=== PATIENT | female | born 1940 | race Hispanic/Latino ===

== ENCOUNTER 2024-02-03 04:43 | Emergency (ER) | payer MEDICARE ==
[~2024-02-03] VITALS: Ht 147.3 cm; Wt 49.9 kg
[~2024-02-03 04:43] MED LIST: ALEN35TA53 PO; ASPI-1197 PO; CALC-716 PO; CHOL200013 PO; DOCUSATE SODIUM PO; FERR-63 PO; FOLI0.8T3 PO; LEVO50TA11 PO; MULT-1203 PO; NAPR-1023 PO; POLY119P2 PO; TIMXE255OS OD; TYLENOL PO; VALS80TA30 PO
[2024-02-03 06:50] LABS: BASOPHILS # (AUTO) 0.04 K/uL (0.00-0.20); BASOPHILS % (AUTO) 0.5 % (0.0-5.0); EOSINOPHILS # (AUTO) 0.19 K/uL (0.00-0.70); EOSINOPHILS % (AUTO) 2.5 % (0.0-8.0); HEMATOCRIT 32.6 % (36-48); IMMATURE GRANULOCYTE ABSOLUTE 0.03 K/uL (0-1); LYMPHOCYTES # (AUTO) 1.2 K/uL (1.0-4.8); LYMPHOCYTES % (AUTO) 14.9 % (21.0-51.0); MEAN CORPUSCULAR HEMOGLOBIN 31.7 pg (27.0-33.0); MEAN CORPUSCULAR HGB CONC 33.4 g/dL (32.0-36.0); MEAN CORPUSCULAR VOLUME 94.8 fL (79-99); MONOCYTES # (AUTO) 0.9 K/uL (0.1-1.0); MONOCYTES % (AUTO) 11.9 % (3.0-13.0); NEUTROPHILS # (AUTO) 5.4 K/uL (1.8-7.7); NEUTROPHILS % (AUTO) 69.8 % (40.0-77.0); PLATELET COUNT (AUTO) 193 K/uL (130-400); RED BLOOD CELL COUNT(AUTO) 3.44 MIL/uL (4.00-5.50); RED CELL DISTRIBUTION WIDTH 14.8 % (11.0-15.5); WHITE BLOOD COUNT (AUTO) 7.7 K/uL (4.8-10.8)
[2024-02-03 07:01] LABS: BILIRUBIN,TOTAL 0.3 mg/dL (0.2-1.0); CREATININE 0.4 mg/dL (0.5-1.0); POTASSIUM 4.1 mmol/L (3.5-5.1); TOTAL PROTEIN, SERUM 5.9 g/dL (6.0-8.3)
[2024-02-03 08:24] VITALS: BP 114/56; PULSE 67; RESP 18; O2SAT 99
== END 2024-02-03 10:04 | disposition home or self-care (01) ==
LOC: EDH 04:43
DX: K94.23 Gastrostomy malfunction (principal); E03.9 Hypothyroidism, unspecified; I10 Essential (primary) hypertension; I25.10 Atherosclerotic heart disease of native coronary artery without angina pectoris; Z79.899 Other long term (current) drug therapy
CPT/HCPCS: 36415; 80053; 85025

== ENCOUNTER 2025-01-20 00:45 | Inpatient (IN) | payer MEDICARE ==
[~2025-01-20] VITALS: Ht 162.6 cm; Wt 45.8 kg
[2025-01-20] VITALS (17 sets, daily range): BP systolic 120–140; BP diastolic 60–81; PULSE 63–95; RESP 18–19; TEMP 98–99; O2SAT 96–99
[~2025-01-20 00:45] MED LIST changes: +CALC-716 PEG; -CALC-716 PO; +FERR-63 PEG; -FERR-63 PO; +FOLI0.8T3 PEG; -FOLI0.8T3 PO; +LEVO50TA11 PEG; -LEVO50TA11 PO; +MULT-1203 PEG; -MULT-1203 PO; -NAPR-1023 PO; +NAPR-1194 PO; -TIMXE255OS OD; +TIMXE255OS OS
--- NOTE | 2025-01-20 01:11 | NUR ---
PER [facility], PATIENT HAS DECUBITUS ULCER TO L FOOT, L BUTTOCK AND R ELBOW
--- NOTE | 2025-01-20 01:31 | ERN ---
General Chief Complaint: Shortness of Breath Stated Complaint: LOW OXYGEN SATURATIONS, TACHYPNEA Time Seen by MD: 00:48 History of Present Illness Initial Comments Mrs Cruz is a very pleasant 84-year-old female with a significant past medical history of intellectual disability, hypothyroidism, peptic ulcer disease, vitamin-D deficiency who presents today with low oxygen levels from her [employer]. Patient apparently was brought in after having sats in the 70s and 80s. Patient is intellectually impaired in his unable to give any history. Patient appears to be foaming and having issues with secretions. Allergies: Coded Allergies: No Known Drug Allergies (Unverified Allergy, Unknown, 01/25/24) diphenhydramine (Verified Allergy, Unknown, 01/25/24) Home Meds Reported Medications Cholecalciferol (Vitamin D3) (Vitamin D3) 50 Mcg (2000 Unit) Capsule, 50 MCG PO AM, CAP 01/25/24 Valsartan (Valsartan) 80 Mg Tablet, 80 MG PO BID, TAB 01/25/24 Timolol Maleate (Timoptic Xe 0.25% Ophth Gel) 0.25 % Opems, 20 DROP OD AM, APPL 01/25/24 Polyethylene Glycol 3350 (Miralax) 17 Gram/Dose Powder, 119 GM PO AM, APPL 24 Naproxen (Naproxen) 500 Mg Tablet, 500 MG PO M68DEOR, TAB 01/25/24 Multivitamin (Multi Vitamin Daily) 1 Each Tablet, 1 EACH PO AM, TAB 24 Levothyroxine Sodium (Levothyroxine Sodium) 50 Mcg Tablet, 50 MCG PO AM, TAB 24 Folic Acid (Folic Acid) 0.8 Mg Tablet, 0.8 MG PO AM, TAB 24 Ferrous Sulfate (Feosol) 325 Mg (65 Mg Iron) Tablet, 325 MG PO AM, TAB 24 [Docusate Sodium ] No Conflict Check, 100 TSP PO AM 01/25/24 Calcium Citrate/Vitamin D3 (Calcium Citrate - Vit D Caplet) 315MG-6.25 Tablet, 1 EACH PO AM, TAB 24 Aspirin (Aspirin) 81 Mg Tab.chew, 81 MG PO AM, TAB.CHEW 24 Alendronate Sodium (Alendronate Sodium) 35 Mg Tablet, 35 MG PO QWEEK, TAB 01/25/24 [Tylenol] No Conflict Check, 650 MG PO EVERY 8 HOURS 01/25/24 Past Medical History Past Medical History: Anemia, Arthritis, CAD, Heart Disease, Hypertension, Unknown Medical History Other: DYSPHAGIA,DJD,CARDIOMYOPATHY, CLOSED HEAD INJURY,PULMONARY FIBROSIS Past Surgical History: None, Unknown Surgical History Other: PMH LUNG FIBROSIS, PEG TUBE ROS Dictation ROS and inability to done given patient's intellectual ability Physical Exam Physical Exam Dictation General: Intellectually delayed patient who is screaming Head/Face: Normocephalic, atraumatic Eyes: PERRL, EOMI, vision at baseline ENT: Patient appears to be foaming at side of her mouth n Neck: Trachea midline, supple Cardiovascular: RRR, normal S1/S2, No MRGs, no JVD Respiratory: Coarse breath sounds bilaterally Abdomen: Soft, non-tender, non-distended, normal bowel sounds Skin: Thin skin Neuro: Intellectually delayed unable to conduct exam moving extremities spontaneously, kyphotic Results Laboratory and Microbiology Lab and Micro Result Laboratory Tests Test 01/20/25 01:24 White Blood Count 10.9 K/uL (4.8-10.8) H Red Blood Count 2.75 MIL/uL (4.00-5.50) L Hemoglobin 8.8 g/dL (12.0-16.0) L Hematocrit 28.2 % (36-48) L Mean Corpuscular Volume 102.5 fL (79-99) H Mean Corpuscular Hemoglobin 32.0 pg (27.0-33.0) Mean Corpuscular Hemoglobin Concent 31.2 g/dL (32.0-36.0) L Red Cell Distribution Width 15.5 % (11.0-15.5) Platelet Count 169 K/uL (130-400) Mean Platelet Volume 11.9 fL (7.5-10.5) H Immature Granulocyte % (Auto) 0.5 % (0-1) Neutrophils (%) (Auto) 71.6 % (40.0-77.0) Lymphocytes (%) (Auto) 13.8 % (21.0-51.0) L Monocytes (%) (Auto) 11.1 % (3.0-13.0) Eosinophils (%) (Auto) 2.5 % (0.0-8.0) Basophils (%) (Auto) 0.5 % (0.0-5.0) Neutrophils # (Auto) 7.8 K/uL (1.8-7.7) H Lymphocytes # (Auto) 1.5 K/uL (1.0-4.8) Monocytes # (Auto) 1.2 K/uL (0.1-1.0) H Eosinophils # (Auto) 0.27 K/uL (0.00-0.70) Basophils # (Auto) 0.05 K/uL (0.00-0.20) Absolute Immature Granulocyte (auto 0.05 K/uL (0-1) Nucleated Red Blood Cells 0.0 % (0.0-0.19) Sodium Level 153 mmol/L (136-145) H Potassium Level 3.6 mmol/L (3.5-5.1) Chloride Level 118 mmol/L (101-111) H Carbon Dioxide Level 28 mmol/L (21-32) Blood Urea Nitrogen 23 mg/dL (7-18) H Creatinine 0.3 mg/dL (0.5-1.0) L Glomerular Filtration Rate Calc 104 mL/min (>90) Random Glucose 101 mg/dL (70-105) Total Calcium 8.9 mg/dL (8.5-10.1) Total Bilirubin 0.4 mg/dL (0.2-1.0) Aspartate Amino Transf (AST/SGOT) 46 U/L (10-37) H Alanine Aminotransferase (ALT/SGPT) 31 U/L (12-78) Alkaline Phosphatase 50 U/L (50-136) Total Protein 6.8 g/dL (6.0-8.3) Albumin 2.8 g/dL (3.5-5.0) L MDM Patient at this time has a chest x-ray that is concerning for ongoing aspiration pneumonia as well as sodium in his elevated concerning for hypernatremia. Patient will need to be admitted for further evaluation and care. Spoke to hospitalist who at this time has agreement. MDM: Differential diagnosis: Aspiration pneumonia, acute hypoxic respiratory failure Rationale: Tests considered and ordered secondary to shared decision making include: labs, ECG and radiology Previous outside records reviewed: Old ER visits. Risk of complication and/or morbidity or mortality of patient management: None Medications-Per medication reconciliation Need for hospitalization: Patient does meet criteria for hospitalization. Need for emergency major/minor surgery: No There are no social concerns with this patient. Prescription drug management Prescriptions will include symptomatic care Patient's prior external medical records from other ER visits were reviewed by me as indicated. Prior testing and results from previous visits were reviewed. Prior tests were taken into account with medical decision making and resource utilization, independent historian/historians were used to obtain complete medical history. I independently interpreted the test that were performed, results were reviewed by me and considered findings on radiology if ordered. Medical management and examination interpretation discussions were had by me with other qualified healthcare professionals as indicated for the patient's care. ED Course Orders Procedure Category Date Status Time Cbc With Differential LAB 01/20/25 Complete 00:56 Comprehensive LAB 01/20/25 Complete Metabolic Panel 00:56 Chest 1vw RAD 01/20/25 Resulted 00:56 Cefepime Hcl 1 Gm PHA 01/20/25 Complete Vial (Maxipime 1 Gm Vi 02:00 Vancomycin 750mg PHA 01/20/25 Complete (Vancomycin 750mg) 02:00 0.9% Nacl 250ml (Ns PHA 01/20/25 Complete 250ml) 02:00 Urinalysis Profile LAB 01/20/25 Logged 01:45 Current Medications Medications (Trade) Dose Ordered Sig/Paulo Route PRN Reason Start Time Stop Time Status Last Admin Dose Admin Cefepime HCl (MAXipime 1 GM vial) 1 gm ONCE ONCE IVPB 01/20/25 02:00 01/20/25 02:01 DC 01/20/25 02:06 Sodium Chloride (NS 250ml) 250 ml ONCE ONCE IVPB 01/20/25 02:00 01/20/25 02:01 DC 01/20/25 02:07 Vancomycin HCl (Vancomycin 750mg) 750 mg ONCE ONCE IVPB 01/20/25 02:00 01/20/25 02:01 DC 01/20/25 02:06 Vital Signs Date Time Temp Pulse Resp B/P (MAP) Pulse Ox O2 Delivery O2 Flow Rate FiO2 01/20/25 02:30 99.1 76 20 133/55 97 Nasal Cannula* 2 28 01/20/25 01:12 80 20 135/61 93 Room Air* 0 21 01/20/25 00:57 99.1 87 24 153/69 93 Room Air 0 DX & DISP Disposition: Inpatient Departure Impression: Primary Impression: Acute hypoxic respiratory failure Condition: Stable Referrals: ARYA MICHAUD (PCP) MICKY CAVANAUGH MD Jan 20, 2025 01:31
[2025-01-20 01:37] LABS: IMMATURE GRANULOCYTE ABSOLUTE 0.05 K/uL (0-1); NUCLEATED RED BLOOD CELLS 0.0 % (0.0-0.19); PLATELET COUNT (AUTO) 169 K/uL (130-400); RED BLOOD CELL COUNT(AUTO) 2.75 MIL/uL (4.00-5.50); RED CELL DISTRIBUTION WIDTH 15.5 % (11.0-15.5); WHITE BLOOD COUNT (AUTO) 10.9 K/uL (4.8-10.8)
[2025-01-20 01:49] LABS: CREATININE 0.3 mg/dL (0.5-1.0); GLOMERULAR FILTR. RATE CALC 104.0 mL/min (>90); GLUCOSE,RANDOM 101.0 mg/dL (70-105); SODIUM SERUM 153.0 mmol/L (136-145); UREA NITROGEN, BLOOD 23.0 mg/dL (7-18)
[2025-01-20 01:54] LABS: ASPARTATE AMINOTRANSFERASE 46.0 U/L (10-37); TOTAL PROTEIN, SERUM 6.8 g/dL (6.0-8.3)
--- NOTE | 2025-01-20 02:00 | NUR ---
ATTEMPTED TO STRAIGHT CATHERTIZE PATIENT AT THIS TIME, UNABLE TO DO SO DUE TO PATIENT BEING CONTRACTED TO BILATERAL LEGS. PURDOROTHY PLACED. ED AWARE./DENIA
[2025-01-20] MEDS: VANCOMYCIN 750MG VIAL IVPB ONE (02:06)
[2025-01-20] MEDS: 0.9% NACL 250ML IVPB ONE (02:07)
--- NOTE | 2025-01-20 02:38 | HMCIMG ---
EXAM: CR Chest, 2 views. CLINICAL HISTORY: Shortness of breath. COMPARISON: None provided. FINDINGS: Suboptimal evaluation due to scoliosis and the patient's positioning, the craniofacial bones overlie the right upper thorax. Questionable small pleural effusions and basilar atelectasis bilaterally, more pronounced on the right. Mild COPD. Questionable mild cardiomegaly. Mildly elevated left hemidiaphragm. No pneumothorax. Osteopenia. Degenerative osseous changes. Chronic fracture of the right proximal humerus. IMPRESSION: Suboptimal evaluation due to scoliosis and the patient's positioning, the craniofacial bones overlie the right upper thorax. Questionable small pleural effusions and basilar atelectasis bilaterally, more pronounced on the right. Mild COPD. Questionable mild cardiomegaly. Mildly elevated left hemidiaphragm. /[place]
[2025-01-20] MEDS ORDERED: DEXTROSE 5 %-0.225 % NACL 500 ML IV SCH ×2 (05:00→10:00)
--- NOTE | 2025-01-20 05:03 | HP ---
[facility] HISTORY AND PHYSICAL Date of Service: Jan 20, 2025 Time of Service: 04:39 PCP: Rodney Doe HISTORY OF PRESENT ILLNESS: This is an 84-year-old female, a resident of [facility] with past medical history of Hypothyroidism, pulmonary TB, intellectual disability, hypertension, Coronary artery disease with history of cardiomyopathy chronic dysphagia with PEG tube placement who was brought by EMS to the ED for complaints of low saturation and tachypnea.Apparently patient has been having foaming secretions in the mouth and saturations were on 70 to 80's.Patient is non historian and no family was present during my evaluation.Details and information were mostly gathered from ER MD and primary nurse.As per Er report patient was recently discharged at [facility] and was treated with pneumonia. Latest vital signs temperature 99.9, heart rate 78, blood pressure 120/40 saturation 97% on 2 L nasal cannula. Labs: WBC 10, hemoglobin 8, hematocrit 28, platelet count 169. Sodium 153, potassium 3.6 chloride 118 BUN 23, creatinine 0.3, GFR 104, AST 46, albumin 2.8. Chest x-ray result revealed suboptimal evaluation due to scoliosis and the patient's positioning, the craniofacial bone of the right overlie the right upper thorax . Questionable small pleural effusions and basilar atelectasis bilaterally, more pronounced on the right. Mild Chronic obstructive pulmonary disease. Questionable mild cardiomegaly. Mild elevated left hemidiaphragm. While in the ER patient received vancomycin and cefepime IV. We will admit patient for further medical management. REVIEW OF SYSTEMS unable to perform patient has impaired cognitive PAST MEDICAL HISTORY: [ Hypothyroidism, pulmonary TB, intellectual disability, hypertension, Coronary artery disease with history of cardiomyopathy ] PAST SURGICAL HISTORY: [PEG tube placement on 01/2024 ] PAST SOCIAL HISTORY: [ Patient resides in [facility]. No records of tobacco, alcohol and illicit drug use r] FAMILY HISTORY: [ No pertinent medical history ] Coded Allergies: No Known Drug Allergies (Unverified Allergy, Unknown, 01/25/24) diphenhydramine (Verified Allergy, Unknown, 01/25/24) PHYSICAL EXAM GENERAL APPEARANCE: The patient is somnolent, in no acute cardiopulmonary distress. NEUROLOGICAL: Patient is nonverbal HEENT: Face is symmetric. Pupils are equal and reactive. Extraocular movements are intact. NECK: Supple. No JVD. CHEST: Normal chest expansion. Telemetry. LUNGS: Absence of any rales, rhonchi or any wheezing. CARDIOVASCULAR: Regular. S1 and S2 normal. No appreciable rubs, murmurs or gallops. ABDOMEN: Positive PEG tube clamped Soft, nontender, and nondistended. There is no rebound, voluntary guarding, or rigidity. : Deferred. No Hunt. EXTREMITIES: Non-edematous and not cyanotic. No clubbing. Good capillary refill. SKIN: No skin breakdown. Vital Sign (Last 24 Hours) 01/20/25 04:09 Temp 99.9 Pulse 78 Resp 17 B/P (MAP) 120/40 Pulse Ox 97 O2 Delivery Nasal Cannula* O2 Flow Rate 2 FiO2 28 LABS: Laboratory: Test 01/20/25 01:24 Range/Units White Blood Count 10.9 H 4.8-10.8 K/uL Red Blood Count 2.75 L 4.00-5.50 MIL/uL Hemoglobin 8.8 L 12.0-16.0 g/dL Hematocrit 28.2 L 36-48 % Mean Corpuscular Volume 102.5 H 79-99 fL Mean Corpuscular Hemoglobin 32.0 27.0-33.0 pg Mean Corpuscular Hemoglobin Concent 31.2 L 32.0-36.0 g/dL Red Cell Distribution Width 15.5 11.0-15.5 % Platelet Count 169 130-400 K/uL Mean Platelet Volume 11.9 H 7.5-10.5 fL Immature Granulocyte % (Auto) 0.5 0-1 % Neutrophils (%) (Auto) 71.6 40.0-77.0 % Lymphocytes (%) (Auto) 13.8 L 21.0-51.0 % Monocytes (%) (Auto) 11.1 3.0-13.0 % Eosinophils (%) (Auto) 2.5 0.0-8.0 % Basophils (%) (Auto) 0.5 0.0-5.0 % Neutrophils # (Auto) 7.8 H 1.8-7.7 K/uL Lymphocytes # (Auto) 1.5 1.0-4.8 K/uL Monocytes # (Auto) 1.2 H 0.1-1.0 K/uL Eosinophils # (Auto) 0.27 0.00-0.70 K/uL Basophils # (Auto) 0.05 0.00-0.20 K/uL Absolute Immature Granulocyte (auto 0.05 0-1 K/uL Nucleated Red Blood Cells 0.0 0.0-0.19 % Sodium Level 153 H 136-145 mmol/L Potassium Level 3.6 3.5-5.1 mmol/L Chloride Level 118 H 101-111 mmol/L Carbon Dioxide Level 28 21-32 mmol/L Blood Urea Nitrogen 23 H 7-18 mg/dL Creatinine 0.3 L 0.5-1.0 mg/dL Glomerular Filtration Rate Calc 104 >90 mL/min Random Glucose 101 70-105 mg/dL Total Calcium 8.9 8.5-10.1 mg/dL Total Bilirubin 0.4 0.2-1.0 mg/dL Aspartate Amino Transf (AST/SGOT) 46 H 10-37 U/L Alanine Aminotransferase (ALT/SGPT) 31 12-78 U/L Alkaline Phosphatase 50 50-136 U/L Total Protein 6.8 6.0-8.3 g/dL Albumin 2.8 L 3.5-5.0 g/dL DIAGNOSTICS / RADIOLOGY: [ ] ASSESSMENT: Acute hypoxemic respiratory failure POA Suspected aspiration pneumonia POA Acute anemia POA Hypernatremia POA Hyperchloremia POA Protein calorie malnutrition POA Debility POA Intellectual disability POA Chronic dysphagia on pegtube placement status POA PLAN: We will admit patient in medical telemetry We will keep patient nothing by mouth We will start D51/4NS @ 75 ml / hr x 1bag and re evaluate We will continue on vancomycin and cefepime IV for broad-spectrum coverage We will start on Famotidine 20 mg IV bid for GI prophylaxis We will replace electrolytes as needed per protocol We will seek pulmonology consultation We will request case management service We will request dietary consultation to recommend tube feeding We will seek physical therapy service Follow-up urinalysis and sputum culture May continue oxygen supplementation to keep saturation above 92% We will start on DuoNeb treatment as needed for shortness of breaths We will add prn medication for fever,pain,cough and nausea We will reconcile home meds once medlist available We will request labs in am Further orders to follow depending on above results Case discussed with attending physician and came up with above treatment and plan of care.and acuter anemia ADVANCED CARE PLANNING 1. Which of the following were discussed? Unable to perform patient is cognitively impaire Hospice Care - Yes / No Therapeutic options - Yes / No Advance Directives - Yes / No Other discussions - 2. Discussed with who? 3. Voluntary nature of this service was explained to the patient? Yes 4. Amount of time spent - ____20___ 5. Reviewed by Physician? (if this service was performed by NPP) Yes Patient seen and examined by me. Agree with note by ESCROW REPRESENTATIVE SEE ADDITIONAL ORDERS PER CHART DISCUSSED WITH NURSING STAFF [facility] Jan 20, 2025 05:03
[2025-01-20] MEDS ORDERED: VANCOMYCIN 1G/250ML KIT 250 ML IV ONE (05:30)
[2025-01-20] MEDS ORDERED: VANCOMYCIN PROTOCOL PER PHARMACY IV SCH (05:30)
--- NOTE | 2025-01-20 07:04 | NUR ---
REPORT GIVEN TO HUGO HWANGTRACK [employer] REPAIR SUPERVISOR AT THIS TIME./DENIA
[2025-01-20] MEDS: SODIUM CHLORIDE 3% FOR INHALATION 4 ML/AMP VIAL.NEB IH ONE ×3 (07:06→22:49)
--- NOTE | 2025-01-20 07:37 | NUR ---
PULMONOLOGY CONSULT CALLED AT THIS TIME
[2025-01-20 07:51] LABS: IMMATURE GRANULOCYTE ABSOLUTE 0.04 K/uL (0-1); NUCLEATED RED BLOOD CELLS 0.0 % (0.0-0.19); PLATELET COUNT (AUTO) 132 K/uL (130-400); RED BLOOD CELL COUNT(AUTO) 2.84 MIL/uL (4.00-5.50); RED CELL DISTRIBUTION WIDTH 15.6 % (11.0-15.5); WHITE BLOOD COUNT (AUTO) 9.0 K/uL (4.8-10.8)
--- NOTE | 2025-01-20 08:01 | NUR ---
REPORT GIVEN TO CONSUELO HWANG
[2025-01-20 08:05] LABS: ASPARTATE AMINOTRANSFERASE 37.0 U/L (10-37); CREATININE 0.3 mg/dL (0.5-1.0); GLOMERULAR FILTR. RATE CALC 104.0 mL/min (>90); GLUCOSE,RANDOM 99.0 mg/dL (70-105); SODIUM SERUM 159.0 mmol/L (136-145); TOTAL PROTEIN, SERUM 6.6 g/dL (6.0-8.3); UREA NITROGEN, BLOOD 21.0 mg/dL (7-18)
--- NOTE | 2025-01-20 08:12 | NUR ---
PHARMACY NEEDS TO MAKE IV FLUIDS WILL SEND TO ROOM 202
[2025-01-20] MEDS ORDERED: MAGNESIUM 2GM PREMIX 50ML 50 ML IV PRN (09:30)
[2025-01-20] MEDS ORDERED: PoTASSium chloRIDE 20MEQ ER 20 MEQ ERTAB PO PRN (09:30)
[2025-01-20] MEDS: PoTASSium chl 10% ELIXIR 20MEQ 20 MEQ/15 ML UDCUP PO PRN (09:47)
[2025-01-20] MEDS: FAMOTIDINE 20MG VIAL IV SCH (09:47)
[2025-01-20] MEDS ORDERED: DEXTROSE 5 %-0.225 % NACL 500 ML IV ONE (10:00)
[2025-01-20] MEDS: D5W-1/2 NS/20MEQ KCL 1,000 ML IV SCH (10:11)
--- NOTE | 2025-01-20 10:49 | CONS ---
[facility] CONSULTATION NOTE Date Patient Seen: Jan 20, 2025 Time of Visit: 10:49 Supervising Physician: Dr. Jose A Torres Reason for Consultation: Respiratory failure, pneumonia PROBLEM LIST: Acute hypoxemic respiratory failure Bilateral pneumonia, HAP vs/and aspiration Elevated D-dimer, PE ruled out Hypernatremia Microcytic hypochromic anemia Protein calorie malnutrition Debility Intellectual disability Chronic dysphagia with PEG tube Octogenarian HPI: HPI acquired through chart review, patient unable to provide any history. "This is an 84-year-old female, a resident of [facility] with past medical history of Hypothyroidism, pulmonary TB, intellectual disability, hypertension, Coronary artery disease with history of cardiomyopathy chronic dysphagia with PEG tube placement who was brought by EMS to the ED for complaints of low saturation and tachypnea.Apparently patient has been having foaming secretions in the mouth and saturations were on 70 to 80's.Patient is non historian and no family was present during my evaluation.Details and information were mostly gathered from ER MD and primary nurse.As per Er report patient was recently discharged at [facility] and was treated with pneumonia. Latest vital signs temperature 99.9, heart rate 78, blood pressure 120/40 saturation 97% on 2 L nasal cannula. Labs: WBC 10, hemoglobin 8, hematocrit 28, platelet count 169. Sodium 153, potassium 3.6 chloride 118 BUN 23, creatinine 0.3, GFR 104, AST 46, albumin 2.8. Chest x-ray result revealed suboptimal evaluation due to scoliosis and the patient's positioning, the craniofacial bone of the right overlie the right upper thorax . Questionable small pleural effusions and basilar atelectasis bilaterally, more pronounced on the right. Mild Chronic obstructive pulmonary disease. Questionable mild cardiomegaly. Mild elevated left hemidiaphragm. While in the ER patient received vancomycin and cefepime IV". BIS was consulted due to AHRF and hypoxia. Upon assessment, patient is lethargic, but responds to verbal and tactile stimuli. Currently on 3LPM via NC. Unable to voice needs or follow commands. Meal Temperer at bedside. CTA chest ordered due to elevated d-dimer, negative for PE but shows atelectasis and minimal infiltrates. She will continue on IV ABX Plan: Continue on IV Cefepime, Vanco, and Flagyl Duonebs, CPT Venous doppler Increase water flushes to 250ml every 6 hours to help decrease hypernatremia AM labs Thank you for the consult, we will continue to follow. Call if any questions. PAST MEDICAL HX: see above PAST SURGICAL HX: noncontributory SOCIAL HISTORY: No tobacco, ETOH, or illicit drug use Coded Allergies: No Known Drug Allergies (Unverified Allergy, Unknown, 01/25/24) diphenhydramine (Verified Allergy, Unknown, 01/25/24) REVIEW OF SYSTEMS: Unable due to mental status PHYSICAL EXAM: GENERAL: Lethargic, on NC, NAD HEENT: EOMI, Sclera non icteric, moist mucosa NECK: Supple, no JVD, trachea midline LUNGS: Diminished breath sounds bilaterally. No wheezes HEART: Regular rate and rhythm. Normal S1 and S2, without murmurs ABD: Abdomen soft, nontender. Bowel sounds present EXT: No clubbing cyanosis or edema NEURO: Lethargic Vital Signs (last 8hr) Date Time Temp Pulse Resp B/P (MAP) Pulse Ox O2 Delivery O2 Flow Rate FiO2 01/20/25 07:40 99.0 75 18 131/72 98 Nasal Cannula* 3.0 N/A 01/20/25 07:09 68 18 01/20/25 07:07 18 N/Cannula Low lpm 3.0 32 01/20/25 06:10 73 19 111/51 95 Nasal Cannula* 2 28 01/20/25 05:13 18 N/Cannula Low lpm 2.0 28 01/20/25 05:10 80 18 118/97 95 Nasal Cannula* 2 28 01/20/25 04:09 99.9 78 17 120/40 97 Nasal Cannula* 2 28 LABS: Hematology Labs: Test 01/20/25 07:31 Range/Units White Blood Count 9.0 4.8-10.8 K/uL Red Blood Count 2.84 L 4.00-5.50 MIL/uL Hemoglobin 9.0 L 12.0-16.0 g/dL Hematocrit 29.4 L 36-48 % Mean Corpuscular Volume 103.5 H 79-99 fL Mean Corpuscular Hemoglobin 31.7 27.0-33.0 pg Mean Corpuscular Hemoglobin Concent 30.6 L 32.0-36.0 g/dL Red Cell Distribution Width 15.6 H 11.0-15.5 % Platelet Count 132 130-400 K/uL Mean Platelet Volume 12.9 H 7.5-10.5 fL Immature Granulocyte % (Auto) 0.4 0-1 % Neutrophils (%) (Auto) 67.7 40.0-77.0 % Lymphocytes (%) (Auto) 17.8 L 21.0-51.0 % Monocytes (%) (Auto) 11.3 3.0-13.0 % Eosinophils (%) (Auto) 2.4 0.0-8.0 % Basophils (%) (Auto) 0.4 0.0-5.0 % Neutrophils # (Auto) 6.1 1.8-7.7 K/uL Lymphocytes # (Auto) 1.6 1.0-4.8 K/uL Monocytes # (Auto) 1.0 0.1-1.0 K/uL Eosinophils # (Auto) 0.22 0.00-0.70 K/uL Basophils # (Auto) 0.04 0.00-0.20 K/uL Absolute Immature Granulocyte (auto 0.04 0-1 K/uL Nucleated Red Blood Cells 0.0 0.0-0.19 % Red Blood Cell Morphology See comments Chemistry Labs: Test 01/20/25 09:18 01/20/25 07:31 Range/Units Lactic Acid Level 1.2 0.8-2.5 mmol/L Sodium Level 159 H 136-145 mmol/L Potassium Level 2.8 *L 3.5-5.1 mmol/L Chloride Level 122 *H 101-111 mmol/L Carbon Dioxide Level 31 21-32 mmol/L Blood Urea Nitrogen 21 H 7-18 mg/dL Creatinine 0.3 L 0.5-1.0 mg/dL Glomerular Filtration Rate Calc 104 >90 mL/min Random Glucose 99 70-105 mg/dL Total Calcium 8.7 8.5-10.1 mg/dL Magnesium Level 2.30 1.80-2.40 mg/dL Total Bilirubin 0.4 0.2-1.0 mg/dL Aspartate Amino Transf (AST/SGOT) 37 10-37 U/L Alanine Aminotransferase (ALT/SGPT) 32 12-78 U/L Alkaline Phosphatase 47 L 50-136 U/L Total Protein 6.6 6.0-8.3 g/dL Albumin 2.9 L 3.5-5.0 g/dL Procalcitonin < 0.05 L 0.05-0.5 ng/mL Coagulation Labs: Test 01/20/25 07:31 Range/Units D-Dimer Quantitative (PE/DVT) 2476 *H 0-500 ng/mL DIAGNOSTICS / RADIOLOGY RESULTS: SERVICE [id number] REASON: elevated d-dimer ORDERING PHYSICIAN: QIAN ARAUJO NP PROCEDURE: CHES PE - CT CHEST PE PROTOCOL WWO CONT EXAM: CTA Chest with and without Intravenous Contrast for PE evaluation CLINICAL HISTORY: elevated d-dimer TECHNIQUE: Axial CTA images of the chest with and without intravenous contrast using a pulmonary embolism protocol. Multiplanar reconstructed images were created and reviewed. CONTRAST: None. was administered without incident. COMPARISON: None provided. FINDINGS: PULMONARY ARTERIES: No evidence of central or segmental pulmonary embolism is seen. AORTA: There is no evidence for aneurysm or dissection of the thoracic aorta. LUNGS: Bibasilar atelectasis. No pulmonary infiltrates. PLEURAL SPACES: Trace bilateral pleural effusions. HEART: Heart size is within normal limits. No significant pericardial effusion. LYMPH NODES: No lymphadenopathy is evident. BONES: Moderate degenerative changes in the thoracic spine with marked kyphotic deformity. UPPER ABDOMEN: Images of the upper abdomen are unremarkable. IMPRESSION: No pulmonary embolus. No thoracic aortic aneurysm or dissection. Trace bilateral pleural effusions. Bibasilar atelectasis. No pulmonary infiltrates. Moderate degenerative changes in the thoracic spine with marked kyphotic deformity. /[place] Disposition: Per primary team QIAN ARAUJO NP Jan 20, 2025 10:49
[2025-01-20 12:43] LABS: SARS-CoV-2, RNA, NAAT NEGATIVE SARS CoV-2 (NEGATIVE)
[2025-01-20 12:48] LABS: INFLUENZA TYPE A Negative For Type A (NEGATIVE); INFLUENZA TYPE B Negative For Type B (NEGATIVE)
--- NOTE | 2025-01-20 12:53 | NUR ---
POA pressure injury to LT inner foot, left buttock, and coccyx taken as per protocol.
--- NOTE | 2025-01-20 13:15 | NUR ---
Spoke with Nery Logan - director of [facility]. As per director she is the one to give consents for the patient. Telephone Consent for CT Chest per PE protocol given.
--- NOTE | 2025-01-20 13:28 | NUR ---
Nutrition consult per TF recs Reviewed labs, notes, and medications. Pt with intellectual disability, PEG tube in place, on 2L N.C, NPO, Iv fluid, Na 159(H), K 2.8 (L), elevated BUN 21, Cr 0.3(L) per chart review. Wt via bed scale, moderate muscle and fat loss, no wounds noted per nursing. Pt with BMI of 17.2, Pt with severe PCM, Supplement thiamin 100 mg/day for 5-7 days + MVI QD for at least 10 days. TF recs to meet Pt's needs. Monitor TF tolerance, monitor electrolytes. Pt high risk of refeeding syndrome. Start TF rate @ 25 ml/hr for the first 24 hours, increase 5 ml Q2H until you reach goal rate. If residual >500 ml stop TF for 2 hours and then restart if residual continues to be >500 ml stop TF and notify MD Recommendations: -Provide Jevity 1.5 @ 50 ml/hr x 22 hrs + 200 Q4H, goal rate to be provided once electrolytes are WNL Provides: 1650 kcals, 70 gm pro, 2036 ml per day -If bolus provide: 5 cans of Jevity 1.5 (times: 0900,1400, 1900, 0000,0400) 30 ml before and after each feed -Monitor BM -If no BM >3 days consider stool softener -Monitor electrolytes -Replenish electrolytes per protocol -Monitor wts -Reweigh as able -Order Vit D, vit b12 labs -Provide MVI QD -Recommend Pt to follow up with PCP -Monitor TF tolerance + need for TF adjustment -Monitor goals of care RD to follow + available for consult per protocol Addendum: 01/20/[address] at [address] Amended: Links added.
[2025-01-20] MEDS ORDERED: IOHEXOL-350 75 ML VIAL IV ONE (13:37)
--- NOTE | 2025-01-20 13:56 | CONS ---
NEPHROLOGY CONSULTATION NOTE Date/Time Patient Seen: Jan 20, 2025 [id number] Reason for Consultation: Renal failure HISTORY OF PRESENT ILLNESS: This is an 84-year-old female, a resident of [facility] with past medical history of Hypothyroidism, pulmonary TB, intellectual disability, hy pertension, Coronary artery disease with history of cardiomyopathy chronic dysphagia with PEG tube placement who was brought by EMS to the ED for complaints of low saturation and tachypnea. Chest x-ray result revealed suboptimal evaluation due to scoliosis and the patient's positioning, the craniofacial bone of the right overlie the right upper thorax . Questionable small pleural effusions and basilar atelectasis bilaterally, more pronounced on the right. Mild Chronic obstructive pulmonary disease. Questionable mild cardiomegaly. Mild elevated left hemidiaphragm. While in the ER patient received vancomycin and cefepime IV. She was noted with hyponatremia Sodium is improving She was seen in the medical floor REVIEW OF SYSTEMS: Unable to obtain due to patient's status PAST MEDICAL HISTORY: Hypothyroidism, pulmonary TB, intellectual disability, hypertension, Coronary artery disease with history of cardiomyopathy PAST SURGICAL HISTORY: PEG tube placement on 01/2024 PAST SOCIAL HISTORY: Resides at [facility] FAMILY HISTORY: Noncontributory PHYSICAL EXAM: GENERAL: Pale. No acute distress. EYES: EOMI. Anicteric. HENT: Moist mucous membranes. No scleral icterus. No cervical lymphadenopathy. LUNGS: Clear to auscultation bilaterally. No accessory muscle use. CARDIOVASCULAR: Regular rate and rhythm. No murmur. No JVD. ABDOMEN: Soft, non-tender and non-distended. No palpable masses. EXTREMITIES: No edema. Non-tender. SKIN: No rashes or lesions. Warm. NEUROLOGIC: No focal neurological deficits. CN II-XII grossly intact, but not individually tested. PSYCHIATRIC: Cooperative. Appropriate mood and affect. MEDICATIONS: [ ] Current Medications Medications (Trade) Dose Ordered Sig/Paulo Route PRN Reason Start Time Stop Time Status Last Admin Dose Admin Acetaminophen (TYLenol 325MG TAB) 650 mg Q4H PRN PO MILD PAIN (1-3) 01/20/25 05:00 02/19/25 04:59 Acetaminophen (TYLenol 325MG TAB) 650 mg Q6H PRN PO TEMPERATURE GREATER THAN 101.5 01/20/25 05:00 02/19/25 04:59 Albuterol (DUOneb) 1 udvial [id number] IH 01/20/25 06:00 02/19/25 05:59 01/20/25 11:20 1 UDVIAL Cefepime HCl (MAXipime 1 GM vial) 1 gm Q12H IVPB 01/20/25 05:00 01/30/25 04:59 Dextrose/Sodium Chloride 500 ml @ 75 mls/hr Q6H40M IV 01/20/25 05:00 01/20/25 09:48 DC Dextrose/Sodium Chloride 500 ml @ 75 mls/hr Q6H40M IV 01/20/25 10:00 01/20/25 09:49 DC Famotidine (Pepcid 20mg Vial) 20 mg BID IV 01/20/25 09:00 02/19/25 08:59 01/20/25 09:47 20 MG Magnesium Sulfate 50 ml @ 0 mls/hr PROTOCOL PRN IV hypomagensium 01/20/25 09:30 02/19/25 09:29 Metronidazole/ Sodium Chloride 100 ml @ 100 mls/hr Q8H6 IVPB 01/20/25 14:00 01/30/25 13:59 Ondansetron HCl (zoFRAN 4MG INJ) 4 mg Q6H PRN IV NAUSEA/VOMITING 01/20/25 05:00 02/19/25 04:59 Potassium Chloride/Dextrose/ Sod Cl 1,000 ml @ 45 mls/hr [id number] IV 01/20/25 10:00 02/19/25 09:59 01/20/25 10:11 45 MLS/HR Potassium Chloride 100 ml @ 50 mls/hr AD PRN IV POTASSIUM PROTOCOL 01/20/25 09:30 02/19/25 09:29 Potassium Chloride (K-Dur/Klor-Con 20meq) 20 meq AD PRN PO POTASSIUM PROTOCOL 01/20/25 09:30 02/19/25 09:29 Potassium Chloride (KCl 10% Elixir 20meq/15ml) 20 meq AD PRN PO POTASSIUM PROTOCOL 01/20/25 09:30 02/19/25 09:29 01/20/25 09:47 20 MEQ Vancomycin HCl (Vancomycin 750mg) 750 mg Q24H IVPB 01/21/25 02:00 01/31/25 01:59 Vancomycin HCl (Vancomycin Protocol) 1 each AD IV 01/20/25 05:30 02/03/25 05:29 Vital Signs (last 8hr) Date Time Temp Pulse Resp B/P (MAP) Pulse Ox O2 Delivery O2 Flow Rate FiO2 01/20/25 11:23 18 N/Cannula Low lpm 3.0 32 01/20/25 11:00 99.0 63 19 140/73 100 Nasal Cannula 3.0 01/20/25 10:58 69 18 01/20/25 08:40 99.0 73 18 134/65 99 Nasal Cannula 3.0 01/20/25 07:40 99.0 75 18 131/72 98 Nasal Cannula* 3.0 N/A 01/20/25 07:09 68 18 01/20/25 07:07 18 N/Cannula Low lpm 3.0 32 01/20/25 06:10 73 19 111/51 95 Nasal Cannula* 2 28 DIAGNOSTICS / RADIOLOGY: REASON: SOB ORDERING PHYSICIAN: MICKY CAVANAUGH MD PROCEDURE: CXR1VW - CHEST 1VW EXAM: CR Chest, 2 views. CLINICAL HISTORY: Shortness of breath. COMPARISON: None provided. FINDINGS: Suboptimal evaluation due to scoliosis and the patient's positioning, the craniofacial bones overlie the right upper thorax. Questionable small pleural effusions and basilar atelectasis bilaterally, more pronounced on the right. Mild COPD. Questionable mild cardiomegaly. Mildly elevated left hemidiaphragm. No pneumothorax. Osteopenia. Degenerative osseous changes. Chronic fracture of the right proximal humerus. IMPRESSION: Suboptimal evaluation due to scoliosis and the patient's positioning, the craniofacial bones overlie the right upper thorax. Questionable small pleural effusions and basilar atelectasis bilaterally, more pronounced on the right. Mild COPD. Questionable mild cardiomegaly. Mildly elevated left hemidiaphragm. /[place] DICTATED BY: EAMON ALANIS Jr., MD DATE: 01/20/25 0338 LABORATORY: [ ] Hematology Labs: Test 01/20/25 07:31 Range/Units White Blood Count 9.0 4.8-10.8 K/uL Red Blood Count 2.84 L 4.00-5.50 MIL/uL Hemoglobin 9.0 L 12.0-16.0 g/dL Hematocrit 29.4 L 36-48 % Mean Corpuscular Volume 103.5 H 79-99 fL Mean Corpuscular Hemoglobin 31.7 27.0-33.0 pg Mean Corpuscular Hemoglobin Concent 30.6 L 32.0-36.0 g/dL Red Cell Distribution Width 15.6 H 11.0-15.5 % Platelet Count 132 130-400 K/uL Mean Platelet Volume 12.9 H 7.5-10.5 fL Immature Granulocyte % (Auto) 0.4 0-1 % Neutrophils (%) (Auto) 67.7 40.0-77.0 % Lymphocytes (%) (Auto) 17.8 L 21.0-51.0 % Monocytes (%) (Auto) 11.3 3.0-13.0 % Eosinophils (%) (Auto) 2.4 0.0-8.0 % Basophils (%) (Auto) 0.4 0.0-5.0 % Neutrophils # (Auto) 6.1 1.8-7.7 K/uL Lymphocytes # (Auto) 1.6 1.0-4.8 K/uL Monocytes # (Auto) 1.0 0.1-1.0 K/uL Eosinophils # (Auto) 0.22 0.00-0.70 K/uL Basophils # (Auto) 0.04 0.00-0.20 K/uL Absolute Immature Granulocyte (auto 0.04 0-1 K/uL Nucleated Red Blood Cells 0.0 0.0-0.19 % Red Blood Cell Morphology See comments Chemistry Labs: Test 01/20/25 12:06 01/20/25 09:18 01/20/25 07:31 Range/Units Whole Blood Glucose 95 70-110 MG/DL Lactic Acid Level 1.2 0.8-2.5 mmol/L Sodium Level 159 H 136-145 mmol/L Potassium Level 2.8 *L 3.5-5.1 mmol/L Chloride Level 122 *H 101-111 mmol/L Carbon Dioxide Level 31 21-32 mmol/L Blood Urea Nitrogen 21 H 7-18 mg/dL Creatinine 0.3 L 0.5-1.0 mg/dL Glomerular Filtration Rate Calc 104 >90 mL/min Random Glucose 99 70-105 mg/dL Total Calcium 8.7 8.5-10.1 mg/dL Magnesium Level 2.30 1.80-2.40 mg/dL Total Bilirubin 0.4 0.2-1.0 mg/dL Aspartate Amino Transf (AST/SGOT) 37 10-37 U/L Alanine Aminotransferase (ALT/SGPT) 32 12-78 U/L Alkaline Phosphatase 47 L 50-136 U/L Total Protein 6.6 6.0-8.3 g/dL Albumin 2.9 L 3.5-5.0 g/dL Procalcitonin < 0.05 L 0.05-0.5 ng/mL Coagulation Labs: Test 01/20/25 07:31 Range/Units D-Dimer Quantitative (PE/DVT) 2476 *H 0-500 ng/mL ASSESSMENT: Hypernatremia Hypokalemia Acute hypoxemic respiratory failure Suspected aspiration pneumonia Acute anemia Hyperchloremia Protein calorie malnutrition Debility Intellectual disability Chronic dysphagia on peg tube placement status POA PLAN: Labs, diagnostic, radiologic exams reviewed and interpreted by myself and supervising physician. We have reviewed external records in detail Continue with free water flushes. Obtain UA, urine electrolytes, urine creatinine, urine osmolality Continue with frequent BMPs q.12 hours Start thiamine 100 mg IV daily Require close monitoring of renal function and electrolytes Order CBC, CMP, uric acid, TSH, complete iron panel, ferritin and electrolytes in am Continue with antibiotics BiPAP as necessary, for respiratory distress IV pressors as needed Monitor blood pressure adjust medication doses as needed Avoid hypotensive episodes May use Dilaudid 0.5 mg IV every 6 hours as needed for severe pain Monitor blood sugars Strict intake, output, and daily weight should be monitored Please renally adjust medications Avoid nephrotoxic and nonsteroidal drugs Avoid contrast if possible Will continue to monitor renal function, anemia, electrolytes Treatment plan discussed with patient Questions were answered We have discussed with the other team physicians in detail about the care plan We will continue to monitor the patient closely Thank you for allowing us to participate in the care of this patient ATTESTATION BY PHYSICIAN I have seen and examined the patient. I reviewed the documentation, medical decision making, and treatment plan as noted by the mid-level provider above. I agree with the findings and plan of care. Patient has complicated medical problems with underlying intellectual disability and total time spent was more than 75 minutes TOBIAS MESSER MD, [facility] Jan 20, 2025 13:56 TOBIAS MESSER MD Jan 20, 2025 20:21
[2025-01-20] MEDS ORDERED: ASCO500T10 PEG (15:10)
[2025-01-20] MEDS ORDERED: LACT1CAP90 PEG (15:11)
[2025-01-20] MEDS ORDERED: BIMA5DRO OS (15:13)
--- NOTE | 2025-01-20 15:19 | NUR ---
[facility] called that patient has a legal guardian that Nery Logan was not aware. Legal guardian is Lesli Perkins. Phone number is [phone]
--- NOTE | 2025-01-20 15:30 | NUR ---
Spoke with legal guardian Sangeetha Ballesteros. Updated on patient status and studies done. Telephone consent for DNR/DNI given.
--- NOTE | 2025-01-20 15:50 | HMCIMG ---
EXAM: CTA Chest with and without Intravenous Contrast for PE evaluation CLINICAL HISTORY: elevated d-dimer TECHNIQUE: Axial CTA images of the chest with and without intravenous contrast using a pulmonary embolism protocol. Multiplanar reconstructed images were created and reviewed. CONTRAST: None. was administered without incident. COMPARISON: None provided. FINDINGS: PULMONARY ARTERIES: No evidence of central or segmental pulmonary embolism is seen. AORTA: There is no evidence for aneurysm or dissection of the thoracic aorta. LUNGS: Bibasilar atelectasis. No pulmonary infiltrates. PLEURAL SPACES: Trace bilateral pleural effusions. HEART: Heart size is within normal limits. No significant pericardial effusion. LYMPH NODES: No lymphadenopathy is evident. BONES: Moderate degenerative changes in the thoracic spine with marked kyphotic deformity. UPPER ABDOMEN: Images of the upper abdomen are unremarkable. IMPRESSION: No pulmonary embolus. No thoracic aortic aneurysm or dissection. Trace bilateral pleural effusions. Bibasilar atelectasis. No pulmonary infiltrates. Moderate degenerative changes in the thoracic spine with marked kyphotic deformity. /[place]
--- NOTE | 2025-01-20 16:04 | NUR ---
DCP: INITIAL ASSESSMENT Patient is a resident of [facility]. All her needs are met by direct care staff and nursing at [place]. Patient needs help with ADLs, feeding and transportation. She has diagnosis of Intellectual and Developmental Disability. PCP is Dr. Nader Stevens. Medications are taken care of by [facility]. Patient has [facility] Staff member at bedside. DCP is back to [place]. Addendum: 01/20/25 at 1608 by JODY SERRANO SS Amended: Links added.
[2025-01-20 17:20] LABS: ABG BASE EXCESS 1.1 mmol/L (-2.0-3.0); ABG HCO3 25.9 mmol/L (21.0-28.0); ABG OXYGEN SATURATION 95.3 % (94.0-98.0); ABG PCO2 42 mmHg (32-45); ABG PH 7.412 (7.350-7.450); DEVICE COMMENT LR VALENTINA; PO2, ARTERIAL BG 75.6 mmHg (83.0-108.0); TEMPERATURE, CELSIUS BG 37.0 CELSIUS (35.5-37.0); VENT MODE, BG 3LNC (ROOM AIR)
--- NOTE | 2025-01-20 18:47 | HMCIMG ---
EXAM: US for Deep Venous Thrombosis, bilateral Lower Extremity. CLINICAL HISTORY: Leg Pain and Swelling TECHNIQUE: Real-time ultrasound scan of the veins of the bilateral lower extremity with color Doppler flow, spectral waveform analysis and compression. COMPARISON: None provided. FINDINGS: DEEP VEINS: The common femoral, superficial femoral, and popliteal veins are echolucent and compressible. There is normal color Doppler flow throughout. Bilateral posterior tibial veins were not seen. SOFT TISSUES: No popliteal fossa cyst or other abnormalities. IMPRESSION: 1. No sonographic evidence of deep venous thrombosis in the visualized deep veins of both lower extremities. 2. Please note that the bilateral posterior tibial veins were not visualized. /[place]
[2025-01-20] MEDS: BALSAM PERU/CASTOR OIL 60 GM TUBE TP SCH (20:55)
[2025-01-21] VITALS (16 sets, daily range): BP systolic 94–143; BP diastolic 50–88; PULSE 75–95; RESP 17–19; TEMP 97.7–100.1; O2SAT 97–100
[2025-01-21] MEDS: VANCOMYCIN 750MG VIAL IVPB SCH (01:20)
[2025-01-21 01:34] LABS: ABG BASE EXCESS 1.8 mmol/L (-2.0-3.0); ABG HCO3 26.3 mmol/L (21.0-28.0); ABG OXYGEN SATURATION 89.8 % (94.0-98.0); ABG PCO2 40 mmHg (32-45); ABG PH 7.431 (7.350-7.450); CARBON MONOXIDE 0.1 % (0.5-1.5); DEVICE COMMENT MAX RN ,RR; PO2, ARTERIAL BG 55.7 mmHg (83.0-108.0); TEMPERATURE, CELSIUS BG 34.0 CELSIUS (35.5-37.0); VENT MODE, BG NC (ROOM AIR)
[2025-01-21 04:23] LABS: NUCLEATED RED BLOOD CELLS 0.0 % (0.0-0.19); PLATELET COUNT (AUTO) 160.0 K/uL (130-400); RED BLOOD CELL COUNT(AUTO) 2.51 MIL/uL (4.00-5.50); RED CELL DISTRIBUTION WIDTH 15.3 % (11.0-15.5); WHITE BLOOD COUNT (AUTO) 9.3 K/uL (4.8-10.8)
[2025-01-21 04:38] LABS: % IRON SATURATION 4.6 % (22-44); IRON, SERUM 13.0 mcg/dL (50-170)
[2025-01-21 05:08] LABS: ASPARTATE AMINOTRANSFERASE 27.0 U/L (10-37); CREATININE 0.4 mg/dL (0.5-1.0); GLOMERULAR FILTR. RATE CALC 97.0 mL/min (>90); GLUCOSE,RANDOM 122.0 mg/dL (70-105); PHOSPHORUS 1.8 mg/dL (2.5-4.9); SODIUM SERUM 154.0 mmol/L (136-145); TOTAL PROTEIN, SERUM 5.9 g/dL (6.0-8.3); UREA NITROGEN, BLOOD 17.0 mg/dL (7-18)
[2025-01-21] MEDS: DEXTROSE 5%-WATER 1,000 ML IV SCH (06:44)
--- NOTE | 2025-01-21 07:31 | HMCIMG ---
EXAM: CR Chest, 1 View. CLINICAL HISTORY: Respiratory failure COMPARISON: CR chest and CT chest dated 01/20/2025 FINDINGS: Suboptimal evaluation due to kyphosis and the patient's positioning, the craniofacial bones overlie the right upper thorax. Unchanged trace bilateral pleural effusions with bibasilar atelectasis. Subtle interval reduction in aeration of the right lung. No pneumothorax The cardiac size is stable. Pulmonary vessels are unremarkable. IMPRESSION: 1. Trace bilateral pleural effusions with bibasilar atelectasis, unchanged. 2. Subtle decreased right lung aeration. /[place]
[2025-01-21] MEDS ORDERED: THIAMINE HCL 100 MG/ML 2ML VIAL IVP SCH (09:00)
[2025-01-21 09:43] LABS: CREATININE,URINE RANDOM 18.49 mg/dL (30-135)
[2025-01-21 09:44] LABS: APPEARANCE,URINE CLEAR (CLEAR); GLUCOSE, URINE (UA) NEGATIVE (NEGATIVE); LEUKOCYTE ESTERASE ,URINE NEGATIVE Leu/uL (NEGATIVE); NITRATE,URINE 1+ (NEGATIVE); OCCULT BLOOD,URINE NEGATIVE (NEGATIVE)
[2025-01-21 09:45] LABS: ADD UA MICROSCOPIC YES
--- NOTE | 2025-01-21 11:09 | PN ---
NEPHROLOGY PROGRESS NOTE Date/Time Patient Seen: Jan 21, 2025 SUBJECTIVE: This is an 84-year-old female, a resident of [facility] with past medical history of Hypothyroidism, pulmonary TB, intellectual disability, hypertension, Coronary artery disease with history of cardiomyopathy chronic dysphagia with PEG tube placement who was brought by EMS to the ED for complaints of low saturation and tachypnea. Chest x-ray result revealed suboptimal evaluation due to scoliosis and the patient's positioning, the craniofacial bone of the right overlie the right upper thorax . Questionable small pleural effusions and basilar atelectasis bilaterally, more pronounced on the right. Mild Chronic obstructive pulmonary disease. Questionable mild cardiomegaly. Mild elevated left hemidiaphragm. While in the ER patient received vancomycin and cefepime IV. She was noted with hyponatremia Sodium is improving, 154 mmol/L Continues on D5W for hypernatremia Continues free water flushes Tolerating tube feedings well. Hemoglobin has remained stable, iron panel was noted She was seen in the medical floor REVIEW OF SYSTEMS: Unable to obtain due to patient's status Vital Signs (last 8hr) Date Time Temp Pulse Resp B/P (MAP) Pulse Ox O2 Delivery O2 Flow Rate FiO2 01/21/25 13:34 82 18 01/21/25 11:00 100.0 86 18 121/61 99 Nasal Cannula 3.0 01/21/25 10:09 82 18 01/21/25 07:00 97.7 78 18 137/71 96 Nasal Cannula 3.0 01/21/25 06:31 79 18 N/Cannula Low lpm 5.0 40 01/21/25 06:28 79 18 PHYSICAL EXAM: GENERAL: Pale. No acute distress. EYES: EOMI. Anicteric. HENT: Moist mucous membranes. No scleral icterus. No cervical lymphadenopathy. LUNGS: Clear to auscultation bilaterally. No accessory muscle use. CARDIOVASCULAR: Regular rate and rhythm. No murmur. No JVD. ABDOMEN: Soft, non-tender and non-distended. No palpable masses. EXTREMITIES: No edema. Non-tender. SKIN: No rashes or lesions. Warm. NEUROLOGIC: No focal neurological deficits. CN II-XII grossly intact, but not individually tested. PSYCHIATRIC: Cooperative. Appropriate mood and affect. Current Medications Medications (Trade) Dose Ordered Sig/Paulo Route Start Time Stop Time Status Last Admin Dose Admin Albuterol (DUOneb) 1 udvial [id number] IH 01/20/25 06:00 02/19/25 05:59 01/21/25 13:34 1 UDVIAL Cefepime HCl (MAXipime 1 GM vial) 1 gm Q12H IVPB 01/20/25 05:00 01/30/25 04:59 01/21/25 04:01 1 GM Dextrose 1,000 ml @ 100 mls/hr Q10H IV 01/21/25 06:30 02/20/25 06:29 01/21/25 06:44 100 MLS/HR Dextrose/Sodium Chloride 500 ml @ 75 mls/hr Q6H40M IV 01/20/25 05:00 01/20/25 09:48 DC Dextrose/Sodium Chloride 500 ml @ 75 mls/hr Q6H40M IV 01/20/25 10:00 01/20/25 09:49 DC Famotidine (Pepcid 20mg Vial) 20 mg BID IV 01/20/25 09:00 02/19/25 08:59 01/21/25 11:30 20 MG Folic Acid (FolVITE 5 MG/ML VIAL) 1 mg DAILY IV 01/21/25 09:00 02/20/25 08:59 01/21/25 11:31 1 MG Metronidazole/ Sodium Chloride 100 ml @ 100 mls/hr Q8H6 IVPB 01/20/25 14:00 01/30/25 13:59 01/21/25 05:07 100 MLS/HR Potassium Chloride/Dextrose/ Sod Cl 1,000 ml @ 45 mls/hr [id number] IV 01/20/25 10:00 02/19/25 09:59 01/21/25 12:03 45 MLS/HR Thiamine HCl (Vitamin B-1) 100 mg DAILY IVP 01/21/25 09:00 01/20/25 14:56 DC Thiamine HCl (Vitamin B-1) 100 mg DAILY IVP 01/21/25 09:00 01/23/25 09:01 01/21/25 11:30 100 MG Vancomycin HCl (Vancomycin 750mg) 750 mg Q24H IVPB 01/21/25 02:00 01/31/25 01:59 01/21/25 01:20 750 MG Vancomycin HCl (Vancomycin Protocol) 1 each AD IV 01/20/25 05:30 02/03/25 05:29 Wound Care/ Dressing Products (Venelex Ointment) BID TP 01/20/25 21:00 02/19/25 20:59 01/21/25 12:04 1 GM LABORATORY: [ ] Hematology Labs: Test 01/21/25 03:53 01/20/25 07:31 Range/Units White Blood Count 9.3 4.8-10.8 K/uL Red Blood Count 2.51 L 4.00-5.50 MIL/uL Hemoglobin 8.0 L 12.0-16.0 g/dL Hematocrit 26.5 L 36-48 % Mean Corpuscular Volume 105.6 H 79-99 fL Mean Corpuscular Hemoglobin 31.9 27.0-33.0 pg Mean Corpuscular Hemoglobin Concent 30.2 L 32.0-36.0 g/dL Red Cell Distribution Width 15.3 11.0-15.5 % Platelet Count 160 130-400 K/uL Mean Platelet Volume 12.0 H 7.5-10.5 fL Nucleated Red Blood Cells 0.0 0.0-0.19 % Immature Granulocyte % (Auto) 0.4 0-1 % Neutrophils (%) (Auto) 67.7 40.0-77.0 % Lymphocytes (%) (Auto) 17.8 L 21.0-51.0 % Monocytes (%) (Auto) 11.3 3.0-13.0 % Eosinophils (%) (Auto) 2.4 0.0-8.0 % Basophils (%) (Auto) 0.4 0.0-5.0 % Neutrophils # (Auto) 6.1 1.8-7.7 K/uL Lymphocytes # (Auto) 1.6 1.0-4.8 K/uL Monocytes # (Auto) 1.0 0.1-1.0 K/uL Eosinophils # (Auto) 0.22 0.00-0.70 K/uL Basophils # (Auto) 0.04 0.00-0.20 K/uL Absolute Immature Granulocyte (auto 0.04 0-1 K/uL Red Blood Cell Morphology See comments Chemistry Labs: Test 01/21/25 06:14 01/21/25 03:53 01/20/25 09:18 01/20/25 07:31 Range/Units Whole Blood Glucose 115 H 70-110 MG/DL Sodium Level 154 H 136-145 mmol/L Potassium Level 3.4 L 3.5-5.1 mmol/L Chloride Level 119 H 101-111 mmol/L Carbon Dioxide Level 26 21-32 mmol/L Blood Urea Nitrogen 17 7-18 mg/dL Creatinine 0.4 L 0.5-1.0 mg/dL Glomerular Filtration Rate Calc 97 >90 mL/min Random Glucose 122 H 70-105 mg/dL Lactic Acid Level 1.4 0.8-2.5 mmol/L Total Calcium 8.4 L 8.5-10.1 mg/dL Phosphorus Level 1.8 L 2.5-4.9 mg/dL Magnesium Level 2.20 1.80-2.40 mg/dL Iron Level 13 L 50-170 mcg/dL Total Iron Binding Capacity 279 250-450 mcg/dL Percent Iron Saturation 4.6 L 22-44 % Ferritin 28 15-150 ng/mL Total Bilirubin 0.3 # 0.2-1.0 mg/dL Aspartate Amino Transf (AST/SGOT) 27 10-37 U/L Alanine Aminotransferase (ALT/SGPT) 26 12-78 U/L Alkaline Phosphatase 45 L 50-136 U/L Total Protein 5.9 L 6.0-8.3 g/dL Albumin 2.5 L 3.5-5.0 g/dL Folic Acid (LAB) > 20.00 H 2-20 ng/mL Thyroid Stimulating Hormone (TSH) 3.18 # 0.36-3.74 uIU/mL Vitamin B12 Level 2771 H 193-986 pg/mL Vitamin D 25-Hydroxy 70.4 30.0-100.0 ng/mL Procalcitonin < 0.05 L 0.05-0.5 ng/mL Coagulation Labs: Test 01/20/25 07:31 Range/Units D-Dimer Quantitative (PE/DVT) 2476 *H 0-500 ng/mL DIAGNOSTICS / RADIOLOGY: REASON: RESPIRATORY fAILURE ORDERING PHYSICIAN: JACKIE FERNANDEZ PROCEDURE: CXR1VW - CHEST 1VW EXAM: CR Chest, 1 View. CLINICAL HISTORY: Respiratory failure COMPARISON: CR chest and CT chest dated 01/20/2025 FINDINGS: Suboptimal evaluation due to kyphosis and the patient's positioning, the craniofacial bones overlie the right upper thorax. Unchanged trace bilateral pleural effusions with bibasilar atelectasis. Subtle interval reduction in aeration of the right lung. No pneumothorax The cardiac size is stable. Pulmonary vessels are unremarkable. IMPRESSION: 1. Trace bilateral pleural effusions with bibasilar atelectasis, unchanged. 2. Subtle decreased right lung aeration. /[place] DICTATED BY: EAMON ALANIS Jr., MD DATE: 01/21/25829 REASON: elevated d-dimer ORDERING PHYSICIAN: QIAN ARAUJO NP PROCEDURE: VENOUS WOODY - US VENOUS DOPPLER BILATERAL EXAM: US for Deep Venous Thrombosis, bilateral Lower Extremity. CLINICAL HISTORY: Leg Pain and Swelling TECHNIQUE: Real-time ultrasound scan of the veins of the bilateral lower extremity with color Doppler flow, spectral waveform analysis and compression. COMPARISON: None provided. FINDINGS: DEEP VEINS: The common femoral, superficial femoral, and popliteal veins are echolucent and compressible. There is normal color Doppler flow throughout. Bilateral posterior tibial veins were not seen. SOFT TISSUES: No popliteal fossa cyst or other abnormalities. IMPRESSION: 1. No sonographic evidence of deep venous thrombosis in the visualized deep veins of both lower extremities. 2. Please note that the bilateral posterior tibial veins were not visualized. /[place] DICTATED BY: EAMON ALANIS Jr., MD DATE: 01/20/251945 REASON: elevated d-dimer ORDERING PHYSICIAN: QIAN ARAUJO NP PROCEDURE: [facility] PE - CT CHEST PE PROTOCOL WWO CONT EXAM: CTA Chest with and without Intravenous Contrast for PE evaluation CLINICAL HISTORY: elevated d-dimer TECHNIQUE: Axial CTA images of the chest with and without intravenous contrast using a pulmonary embolism protocol. Multiplanar reconstructed images were created and reviewed. CONTRAST: None. was administered without incident. COMPARISON: None provided. FINDINGS: PULMONARY ARTERIES: No evidence of central or segmental pulmonary embolism is seen. AORTA: There is no evidence for aneurysm or dissection of the thoracic aorta. LUNGS: Bibasilar atelectasis. No pulmonary infiltrates. PLEURAL SPACES: Trace bilateral pleural effusions. HEART: Heart size is within normal limits. No significant pericardial effusion. LYMPH NODES: No lymphadenopathy is evident. BONES: Moderate degenerative changes in the thoracic spine with marked kyphotic deformity. UPPER ABDOMEN: Images of the upper abdomen are unremarkable. IMPRESSION: No pulmonary embolus. No thoracic aortic aneurysm or dissection. Trace bilateral pleural effusions. Bibasilar atelectasis. No pulmonary infiltrates. Moderate degenerative changes in the thoracic spine with marked kyphotic deformity. /[place] DICTATED BY: ADILENE PAINTING MD DATE: 01/20/25 1649 REASON: SOB ORDERING PHYSICIAN: MICKY CAVANAUGH MD PROCEDURE: CXR1VW - CHEST 1VW EXAM: CR Chest, 2 views. CLINICAL HISTORY: Shortness of breath. COMPARISON: None provided. FINDINGS: Suboptimal evaluation due to scoliosis and the patient's positioning, the craniofacial bones overlie the right upper thorax. Questionable small pleural effusions and basilar atelectasis bilaterally, more pronounced on the right. Mild COPD. Questionable mild cardiomegaly. Mildly elevated left hemidiaphragm. No pneumothorax. Osteopenia. Degenerative osseous changes. Chronic fracture of the right proximal humerus. IMPRESSION: Suboptimal evaluation due to scoliosis and the patient's positioning, the craniofacial bones overlie the right upper thorax. Questionable small pleural effusions and basilar atelectasis bilaterally, more pronounced on the right. Mild COPD. Questionable mild cardiomegaly. Mildly elevated left hemidiaphragm. /[place] DICTATED BY: EAMON ALANIS Jr., MD DATE: 01/20/25 0338 ASSESSMENT: Hypernatremia Hypokalemia Acute hypoxemic respiratory failure Suspected aspiration pneumonia Acute anemia Hyperchloremia Protein calorie malnutrition Debility Intellectual disability Chronic dysphagia on peg tube placement status PLAN: Labs, diagnostic, radiologic exams reviewed and interpreted by myself and supervising physician. We have reviewed external records in detail Start Venofer 300 mg IV daily x 3 doses. Continue with D5W for hypernatremia and free water flushes Require close monitoring of renal function and electrolytes Order CBC, CMP, and electrolytes in am Continue with antibiotics BiPAP as necessary, for respiratory distress Monitor blood pressure adjust medication doses as needed Avoid hypotensive episodes May use Dilaudid 0.5 mg IV every 6 hours as needed for severe pain Monitor blood sugars Strict intake, output, and daily weight should be monitored Please renally adjust medications Avoid nephrotoxic and nonsteroidal drugs Avoid contrast if possible Will continue to monitor renal function, anemia, electrolytes Treatment plan discussed with patient Questions were answered We have discussed with the other team physicians in detail about the care plan We will continue to monitor the patient closely ATTESTATION BY PHYSICIAN I have seen and examined the patient. I reviewed the documentation, medical decision making, and treatment plan as noted by the mid-level provider above. I agree with the findings and plan of care. TOBIAS MESSER MD, [facility] Jan 21, 2025 11:09
--- NOTE | 2025-01-21 11:28 | PN ---
[facility] PROGRESS NOTE Date Patient Seen: Jan 21, 2025 Time of Visit: 11:28 Supervising Physician: Dr. Jose A Torres PROBLEM LIST: Acute hypoxemic respiratory failure Bilateral pneumonia, HAP vs/and aspiration Elevated D-dimer, PE ruled out Hypernatremia Microcytic hypochromic anemia Protein calorie malnutrition Debility Intellectual disability Chronic dysphagia with PEG tube Octogenarian INTERVAL HISTORY: Patient assessed at bedside. Eyes closed, but responds to verbal and tactile stimuli. Smiled when I said her name. ABG today shows PO2 of 55.7. Currently on 02@3LPM via NC. Weak and hypoxic. note taker at bedside. CXR looks worse today. BLE venous doppler at negative. Prognosis is guarded. Plan: Continue on IV Cefepime, Vanco, and Flagyl Duonebs, CPT Venous doppler negative Increase water flushes to 250ml every 6 hours to help decrease hypernatremia CM for LTACH for continuation of care Thank you for the consult, we will continue to follow. Call if any questions. REVIEW OF SYSTEMS: Unable due to mental status PHYSICAL EXAM: GENERAL: Lethargic, on NC, NAD HEENT: EOMI, Sclera non icteric, moist mucosa NECK: Supple, no JVD, trachea midline LUNGS: Diminished breath sounds bilaterally. No wheezes HEART: Regular rate and rhythm. Normal S1 and S2, without murmurs ABD: Abdomen soft, nontender. Bowel sounds present EXT: No clubbing cyanosis or edema NEURO: Lethargic Vital Signs (last 8hr) Date Time Temp Pulse Resp B/P (MAP) Pulse Ox O2 Delivery O2 Flow Rate FiO2 01/21/25 10:09 82 18 01/21/25 07:00 97.7 78 18 137/71 96 Nasal Cannula 3.0 01/21/25 06:31 79 18 N/Cannula Low lpm 5.0 40 01/21/25 06:28 79 18 LABS: Hematology Labs: Test 01/21/25 03:53 01/20/25 07:31 Range/Units White Blood Count 9.3 4.8-10.8 K/uL Red Blood Count 2.51 L 4.00-5.50 MIL/uL Hemoglobin 8.0 L 12.0-16.0 g/dL Hematocrit 26.5 L 36-48 % Mean Corpuscular Volume 105.6 H 79-99 fL Mean Corpuscular Hemoglobin 31.9 27.0-33.0 pg Mean Corpuscular Hemoglobin Concent 30.2 L 32.0-36.0 g/dL Red Cell Distribution Width 15.3 11.0-15.5 % Platelet Count 160 130-400 K/uL Mean Platelet Volume 12.0 H 7.5-10.5 fL Nucleated Red Blood Cells 0.0 0.0-0.19 % Immature Granulocyte % (Auto) 0.4 0-1 % Neutrophils (%) (Auto) 67.7 40.0-77.0 % Lymphocytes (%) (Auto) 17.8 L 21.0-51.0 % Monocytes (%) (Auto) 11.3 3.0-13.0 % Eosinophils (%) (Auto) 2.4 0.0-8.0 % Basophils (%) (Auto) 0.4 0.0-5.0 % Neutrophils # (Auto) 6.1 1.8-7.7 K/uL Lymphocytes # (Auto) 1.6 1.0-4.8 K/uL Monocytes # (Auto) 1.0 0.1-1.0 K/uL Eosinophils # (Auto) 0.22 0.00-0.70 K/uL Basophils # (Auto) 0.04 0.00-0.20 K/uL Absolute Immature Granulocyte (auto 0.04 0-1 K/uL Red Blood Cell Morphology See comments Chemistry Labs: Test 01/21/25 06:14 01/21/25 03:53 01/20/25 09:18 01/20/25 07:31 Range/Units Whole Blood Glucose 115 H 70-110 MG/DL Sodium Level 154 H 136-145 mmol/L Potassium Level 3.4 L 3.5-5.1 mmol/L Chloride Level 119 H 101-111 mmol/L Carbon Dioxide Level 26 21-32 mmol/L Blood Urea Nitrogen 17 7-18 mg/dL Creatinine 0.4 L 0.5-1.0 mg/dL Glomerular Filtration Rate Calc 97 >90 mL/min Random Glucose 122 H 70-105 mg/dL Lactic Acid Level 1.4 0.8-2.5 mmol/L Total Calcium 8.4 L 8.5-10.1 mg/dL Phosphorus Level 1.8 L 2.5-4.9 mg/dL Magnesium Level 2.20 1.80-2.40 mg/dL Iron Level 13 L 50-170 mcg/dL Total Iron Binding Capacity 279 250-450 mcg/dL Percent Iron Saturation 4.6 L 22-44 % Ferritin 28 15-150 ng/mL Total Bilirubin 0.3 # 0.2-1.0 mg/dL Aspartate Amino Transf (AST/SGOT) 27 10-37 U/L Alanine Aminotransferase (ALT/SGPT) 26 12-78 U/L Alkaline Phosphatase 45 L 50-136 U/L Total Protein 5.9 L 6.0-8.3 g/dL Albumin 2.5 L 3.5-5.0 g/dL Folic Acid (LAB) > 20.00 H 2-20 ng/mL Thyroid Stimulating Hormone (TSH) 3.18 # 0.36-3.74 uIU/mL Vitamin B12 Level 2771 H 193-986 pg/mL Vitamin D 25-Hydroxy 70.4 30.0-100.0 ng/mL Procalcitonin < 0.05 L 0.05-0.5 ng/mL Coagulation Labs: Test 01/20/25 07:31 Range/Units D-Dimer Quantitative (PE/DVT) 2476 *H 0-500 ng/mL DIAGNOSTICS / RADIOLOGY RESULTS: PROCEDURE: CXR1VW - CHEST 1VW EXAM: CR Chest, 1 View. CLINICAL HISTORY: Respiratory failure COMPARISON: CR chest and CT chest dated 01/20/2025 FINDINGS: Suboptimal evaluation due to kyphosis and the patient's positioning, the craniofacial bones overlie the right upper thorax. Unchanged trace bilateral pleural effusions with bibasilar atelectasis. Subtle interval reduction in aeration of the right lung. No pneumothorax The cardiac size is stable. Pulmonary vessels are unremarkable. IMPRESSION: 1. Trace bilateral pleural effusions with bibasilar atelectasis, unchanged. 2. Subtle decreased right lung aeration. Disposition: Per primary team A total of 35 minutes spent for direct patient care including chart review, conversation with patient and/ or family, consultation, and discussion with staff, not including procedures. QIAN ARAUJO NP Jan 21, 2025 11:28
[2025-01-21] MEDS: THIAMINE HCL 100 MG/ML 2ML VIAL IVP SCH (11:30)
[2025-01-21] MEDS ORDERED: COMPOUND IV REFRIGERATED 1 EACH IVSOLN MISC PRN (14:30)
--- NOTE | 2025-01-21 14:40 | PN ---
[facility] PROGRESS NOTE Date of Service: Jan 21, 2025 Time of Service: 14:27 SUBJECTIVE: This is an 84-year-old female, a resident of [facility] with past medical history of Hypothyroidism, pulmonary TB, intellectual disability, hypertension, Coronary artery disease with history of cardiomyopathy chronic dysphagia with PEG tube placement who was brought by EMS to the ED for complaints of low saturation and tachypnea.Apparently patient has been having foaming secretions in the mouth and saturations were on 70 to 80's.Patient is non historian and no family was present during my evaluation.Details and information were mostly gathered from ER MD and primary nurse.As per Er report patient was recently discharged at [facility] and was treated with pneumonia. Latest vital signs temperature 99.9, heart rate 78, blood pressure 120/40 saturation 97% on 2 L nasal cannula. Labs: WBC 10, hemoglobin 8, hematocrit 28, platelet count 169. Sodium 153, potassium 3.6 chloride 118 BUN 23, creatinine 0.3, GFR 104, AST 46, albumin 2.8. Chest x-ray result revealed suboptimal evaluation due to scoliosis and the patient's positioning, the craniofacial bone of the right overlie the right upper thorax . Questionable small pleural effusions and basilar atelectasis bilaterally, more pronounced on the right. Mild Chronic obstructive pulmonary disease. Questionable mild cardiomegaly. Mild elevated left hemidiaphragm. While in the ER patient received vancomycin and cefepime IV. We will admit patient for further medical management. 01/21/2025 - patient seen at bedside in room 202, patient is very frail, nonverbal. Patient is currently hemodynamically stable pulse 86, respiratory rate 18, blood pressure 121/61 , saturating at 99% on 3 L. patient has low-grade fever of 100 . Nutrition consult was placed. Patient is very anemic and has severe iron- deficiency. Patient has hypernatremia, continuing D5 water and free water flushes . Replacing phosphorus for the patient. Patient will be monitored closely . Patient's D-dimer is elevated, CT PE and DVT turned out to be negative. REVIEW OF SYSTEMS unable to perform patient has impaired cognitive PHYSICAL EXAM GENERAL APPEARANCE: The patient is somnolent, in no acute cardiopulmonary distress. NEUROLOGICAL: Patient is nonverbal HEENT: Face is symmetric. Pupils are equal and reactive. Extraocular movements are intact. NECK: Supple. No JVD. CHEST: Normal chest expansion. Telemetry. LUNGS: Absence of any rales, rhonchi or any wheezing. CARDIOVASCULAR: Regular. S1 and S2 normal. No appreciable rubs, murmurs or gallops. ABDOMEN: Positive PEG tube clamped Soft, nontender, and nondistended. There is no rebound, voluntary guarding, or rigidity. : Deferred. No Hunt. EXTREMITIES: Non-edematous and not cyanotic. No clubbing. Good capillary refill. SKIN: No skin breakdown. Vital Signs (last 8hr) Date Time Temp Pulse Resp B/P (MAP) Pulse Ox O2 Delivery O2 Flow Rate FiO2 01/21/25 13:34 82 18 01/21/25 11:00 100.0 86 18 121/61 99 Nasal Cannula 3.0 01/21/25 10:09 82 18 01/21/25 07:00 97.7 78 18 137/71 96 Nasal Cannula 3.0 01/21/25 06:31 79 18 N/Cannula Low lpm 5.0 40 01/21/25 06:28 79 18 LABS: Laboratory: Test 01/21/25 11:59 01/21/25 09:25 01/21/25 03:53 01/21/25 01:32 Range/Units Whole Blood Glucose 125 H 70-110 MG/DL Urine Color LIGHT-YELLOW YELLOW Urine Appearance CLEAR CLEAR Urine pH 6.0 5.0-8.0 Urine Specific [place] 1.017 1.001-1.031 Urine Protein NEGATIVE NEGATIVE mg/dL Urine Glucose (UA) NEGATIVE NEGATIVE mg/dL Urine Ketones NEGATIVE NEGATIVE mg/dL Urine Occult Blood NEGATIVE NEGATIVE Urine Nitrate 1+ H NEGATIVE Urine Bilirubin NEGATIVE NEGATIVE mg/dL Urine Urobilinogen 0.2 0.2-1.0 mg/dL Urine Leukocyte Esterase NEGATIVE NEGATIVE Darren/uL Urine RBC 0-1 0-1 /HPF Urine WBC 0-1 0-1 /HPF Urine Bacteria RARE None Seen /HPF Urine Random Creatinine 18.49 L 30-135 mg/dL Urine Random Sodium 36 L 40-220 mmol/l Urine Random Potassium 34 25-125 mmol/L Urine Random Chloride 66 L 110-250 mmol/L White Blood Count 9.3 4.8-10.8 K/uL Red Blood Count 2.51 L 4.00-5.50 MIL/uL Hemoglobin 8.0 L 12.0-16.0 g/dL Hematocrit 26.5 L 36-48 % Mean Corpuscular Volume 105.6 H 79-99 fL Mean Corpuscular Hemoglobin 31.9 27.0-33.0 pg Mean Corpuscular Hemoglobin Concent 30.2 L 32.0-36.0 g/dL Red Cell Distribution Width 15.3 11.0-15.5 % Platelet Count 160 130-400 K/uL Mean Platelet Volume 12.0 H 7.5-10.5 fL Nucleated Red Blood Cells 0.0 0.0-0.19 % Sodium Level 154 H 136-145 mmol/L Potassium Level 3.4 L 3.5-5.1 mmol/L Chloride Level 119 H 101-111 mmol/L Carbon Dioxide Level 26 21-32 mmol/L Blood Urea Nitrogen 17 7-18 mg/dL Creatinine 0.4 L 0.5-1.0 mg/dL Glomerular Filtration Rate Calc 97 >90 mL/min Random Glucose 122 H 70-105 mg/dL Lactic Acid Level 1.4 0.8-2.5 mmol/L Total Calcium 8.4 L 8.5-10.1 mg/dL Phosphorus Level 1.8 L 2.5-4.9 mg/dL Magnesium Level 2.20 1.80-2.40 mg/dL Iron Level 13 L 50-170 mcg/dL Total Iron Binding Capacity 279 250-450 mcg/dL Percent Iron Saturation 4.6 L 22-44 % Ferritin 28 15-150 ng/mL Total Bilirubin 0.3 # 0.2-1.0 mg/dL Aspartate Amino Transf (AST/SGOT) 27 10-37 U/L Alanine Aminotransferase (ALT/SGPT) 26 12-78 U/L Alkaline Phosphatase 45 L 50-136 U/L Total Protein 5.9 L 6.0-8.3 g/dL Albumin 2.5 L 3.5-5.0 g/dL Folic Acid (LAB) > 20.00 H 2-20 ng/mL Thyroid Stimulating Hormone (TSH) 3.18 # 0.36-3.74 uIU/mL Blood Gas Specimen Type Arterial Arterial Blood pH 7.431 7.350-7.450 Arterial Blood Partial Pressure CO2 40 32-45 mmHg Arterial Blood Partial Pressure O2 55.7 L 83.0-108.0 mmHg Arterial Blood HCO3 26.3 21.0-28.0 mmol/L Arterial Blood Oxygen Saturation 89.8 L 94.0-98.0 % Arterial Blood Base Excess 1.8 -2.0-3.0 mmol/L Hemoglobin (Blood Gas) 9.3 L 12.0-16.0 g/dL Sodium (Blood Gas) 151 H 136-145 MMOL/L Bedside Potassium (Blood Gas) 3.7 3.4-4.5 MMOL/L Bedside Chloride (Blood Gas) 118 H 98-107 MMOL/L Bedside Glucose (Blood Gas) 122 H 65-95 MG/DL Bedside Ionized Calcium (Blood Gas) 1.25 1.15-1.33 MMOL/L Bedside Lactic Acid (Blood Gas) 1.13 H 0.36-0.75 MMOL/L Blood Gas Temperature 34.0 L 35.5-37.0 CELSIUS Blood Gas Flow-by 3.00 0.00-15.00 L/min Blood Gas Vent Mode NC ROOM AIR FiO2 32.0 % Blood Gas Specimen Comment MAX RN ,RR Test 01/20/25 12:10 01/20/25 09:18 01/20/25 07:31 Range/Units Influenza Type A Antigen Negative For Type A NEGATIVE Influenza Type B Antigen Negative For Type B NEGATIVE SARS-CoV-2, RNA, NAAT NEGATIVE SARS CoV-2 NEGATIVE Group A Streptococcus Rapid negative NEGATIVE Vitamin B12 Level 2771 H 193-986 pg/mL Vitamin D 25-Hydroxy 70.4 30.0-100.0 ng/mL Immature Granulocyte % (Auto) 0.4 0-1 % Neutrophils (%) (Auto) 67.7 40.0-77.0 % Lymphocytes (%) (Auto) 17.8 L 21.0-51.0 % Monocytes (%) (Auto) 11.3 3.0-13.0 % Eosinophils (%) (Auto) 2.4 0.0-8.0 % Basophils (%) (Auto) 0.4 0.0-5.0 % Neutrophils # (Auto) 6.1 1.8-7.7 K/uL Lymphocytes # (Auto) 1.6 1.0-4.8 K/uL Monocytes # (Auto) 1.0 0.1-1.0 K/uL Eosinophils # (Auto) 0.22 0.00-0.70 K/uL Basophils # (Auto) 0.04 0.00-0.20 K/uL Absolute Immature Granulocyte (auto 0.04 0-1 K/uL Red Blood Cell Morphology See comments D-Dimer Quantitative (PE/DVT) 2476 *H 0-500 ng/mL Procalcitonin < 0.05 L 0.05-0.5 ng/mL Current Medications Medications (Trade) Dose Ordered Sig/Paulo Route PRN Reason Start Time Stop Time Status Last Admin Dose Admin Acetaminophen (TYLenol 325MG TAB) 650 mg Q4H PRN PO MILD PAIN (1-3) 01/20/25 05:00 02/19/25 04:59 01/21/25 00:28 650 MG Acetaminophen (TYLenol 325MG TAB) 650 mg Q6H PRN PO TEMPERATURE GREATER THAN 101.5 01/20/25 05:00 02/19/25 04:59 Albuterol (DUOneb) 1 udvial [id number] IH 01/20/25 06:00 02/19/25 05:59 01/21/25 13:34 1 UDVIAL Cefepime HCl (MAXipime 1 GM vial) 1 gm Q12H IVPB 01/20/25 05:00 01/30/25 04:59 01/21/25 04:01 1 GM Dextrose 1,000 ml @ 100 mls/hr Q10H IV 01/21/25 06:30 02/20/25 06:29 01/21/25 06:44 100 MLS/HR Dextrose/Sodium Chloride 500 ml @ 75 mls/hr Q6H40M IV 01/20/25 05:00 01/20/25 09:48 DC Dextrose/Sodium Chloride 500 ml @ 75 mls/hr Q6H40M IV 01/20/25 10:00 01/20/25 09:49 DC Famotidine (Pepcid 20mg Vial) 20 mg BID IV 01/20/25 09:00 02/19/25 08:59 01/21/25 11:30 20 MG Folic Acid (FolVITE 5 MG/ML VIAL) 1 mg DAILY IV 01/21/25 09:00 02/20/25 08:59 01/21/25 11:31 1 MG Iron Sucrose (VenoFER) 300 mg Q24H IVP 01/21/25 14:00 01/23/25 14:01 UNV Iron Sucrose 300 mg/Sodium Chloride 250 ml @ 83 mls/hr Q24H IV 01/21/25 14:30 01/23/25 17:31 Magnesium Sulfate 50 ml @ 0 mls/hr PROTOCOL PRN IV hypomagensium 01/20/25 09:30 02/19/25 09:29 Metronidazole/ Sodium Chloride 100 ml @ 100 mls/hr Q8H6 IVPB 01/20/25 14:00 01/30/25 13:59 01/21/25 05:07 100 MLS/HR Ondansetron HCl (zoFRAN 4MG INJ) 4 mg Q6H PRN IV NAUSEA/VOMITING 01/20/25 05:00 02/19/25 04:59 Potassium Chloride/Dextrose/ Sod Cl 1,000 ml @ 45 mls/hr [id number] IV 01/20/25 10:00 02/19/25 09:59 01/21/25 12:03 45 MLS/HR Potassium Phosphate 250 ml @ 42 mls/hr PROTOCOL PRN IV PROTOCOL 01/21/25 09:30 02/20/25 09:29 Potassium Chloride 100 ml @ 50 mls/hr AD PRN IV POTASSIUM PROTOCOL 01/20/25 09:30 02/19/25 09:29 Potassium Chloride (K-Dur/Klor-Con 20meq) 20 meq AD PRN PO POTASSIUM PROTOCOL 01/20/25 09:30 02/19/25 09:29 Potassium Chloride (KCl 10% Elixir 20meq/15ml) 20 meq AD PRN PO POTASSIUM PROTOCOL 01/20/25 09:30 02/19/25 09:29 01/21/25 07:42 20 MEQ Thiamine HCl (Vitamin B-1) 100 mg DAILY IVP 01/21/25 09:00 01/20/25 14:56 DC Thiamine HCl (Vitamin B-1) 100 mg DAILY IVP 01/21/25 09:00 01/23/25 09:01 01/21/25 11:30 100 MG Vancomycin HCl (Vancomycin 750mg) 750 mg Q24H IVPB 01/21/25 02:00 01/31/25 01:59 01/21/25 01:20 750 MG Vancomycin HCl (Vancomycin Protocol) 1 each AD IV 01/20/25 05:30 02/03/25 05:29 Wound Care/ Dressing Products (Venelex Ointment) BID TP 01/20/25 21:00 02/19/25 20:59 01/21/25 12:04 1 GM DIAGNOSTICS / RADIOLOGY: PATIENT: TANO POLANCO MR#: [id number] : 1940 SEX: F AGE: 84 LOCATION: 2AH ORDER [id number] STATUS: ADM IN REPORT#: [id number] SERVICE 0500 REASON: RESPIRATORY fAILURE ORDERING PHYSICIAN: JACKIE FERNANDEZ CHIEF INFORMATION SECURITY OFFICER PROCEDURE: CXR1VW - CHEST 1VW EXAM: CR Chest, 1 View. CLINICAL HISTORY: Respiratory failure COMPARISON: CR chest and CT chest dated 01/20/2025 FINDINGS: Suboptimal evaluation due to kyphosis and the patient's positioning, the craniofacial bones overlie the right upper thorax. Unchanged trace bilateral pleural effusions with bibasilar atelectasis. Subtle interval reduction in aeration of the right lung. No pneumothorax The cardiac size is stable. Pulmonary vessels are unremarkable. IMPRESSION: 1. Trace bilateral pleural effusions with bibasilar atelectasis, unchanged. 2. Subtle decreased right lung aeration. /Arnold DICTATED BY: EAMON ALANIS Jr., MD DATE: 01/21/25829 ELECTRONICALLY SIGNED BY: EAMON ALANIS Jr., MD DATE: 01/21/25829 ASSESSMENT: Acute hypoxemic respiratory failure POA Suspected aspiration pneumonia POA Acute anemia POA Hypernatremia POA Hyperchloremia POA Protein calorie malnutrition POA Debility POA Intellectual disability POA Chronic dysphagia on pegtube placement status POA Severe iron-deficiency POA Hypophosphatemia POA Dehydration POA PLAN: We will admit patient in medical telemetry Acute hypoxemic respiratory failure ,Suspected aspiration pneumonia May continue oxygen supplementation to keep saturation above 92% We will start on DuoNeb treatment as needed for shortness of breaths Follow up with the sputum culture We will follow up pulmonology recommendations Continue on cefepime, vancomycin, Flagyl Protein calorie malnutrition , Chronic Dysphagia on PEG tube Nutrition consult has been ordered We will follow their recommendations We will keep patient nothing by mouth Hypernatremia, electrolyte abnormalities We will start D51/4NS @ 75 ml / hr x 1bag and re evaluate Continue free water flushes We will follow Nephrology recommendations We will replace electrolytes as needed per protocol Anemia, Severe iron-deficiency IV Venofer has been ordered We will follow Nephrology recommendation Maintain the hemoglobin above 7 and transfuse if needed We will request case management service We will seek physical therapy service CT chest PE negative for pulmonary embolism lower extremity Doppler negative for DVT We will add prn medication for fever,pain,cough and nausea We will reconcile home meds once medlist available We will request labs in am Further orders to follow depending on above results Monitor the patient closely ATTESTATION BY PHYSICIAN I have seen and examined the patient. I reviewed the documentation, medical decision making, and treatment plan as noted by the resident provider above. I agree with the findings and plan of care. Jefry Quach MD, KEERTI K MD Jan 21, 2025 14:39
[2025-01-21] MEDS: IRON SUCROSE COMPLEX 300 MG+/NS 250ML IV SCH (15:16)
--- NOTE | 2025-01-21 15:49 | NUR ---
[facility] Consult: Patient assessed by wound healing team. See wound assessment. Assessment and recommendations provided. Education provided. Addendum: 01/22/25 at 1446 by MAYRA BRENNAN RN RN/ROSEY Amended: Links added.
[2025-01-21] MEDS: HONEY 1 APPL/ML TUBE TP SCH (18:40)
[2025-01-21] MEDS: BALSAM PERU/CASTOR OIL 60 GM TUBE TP SCH (21:06)
[2025-01-22] VITALS (13 sets, daily range): BP systolic 105–132; BP diastolic 58–82; PULSE 73–90; RESP 17–20; TEMP 97.8–99.1; O2SAT 94–97
[2025-01-22 03:58] LABS: IMMATURE GRANULOCYTE ABSOLUTE 0.04 K/uL (0-1); NUCLEATED RED BLOOD CELLS 0.0 % (0.0-0.19); PLATELET COUNT (AUTO) 132 K/uL (130-400); RED BLOOD CELL COUNT(AUTO) 2.48 MIL/uL (4.00-5.50); RED CELL DISTRIBUTION WIDTH 14.7 % (11.0-15.5); WHITE BLOOD COUNT (AUTO) 8.7 K/uL (4.8-10.8)
[2025-01-22 04:15] LABS: ASPARTATE AMINOTRANSFERASE 23.0 U/L (10-37); CREATININE 0.3 mg/dL (0.5-1.0); GLOMERULAR FILTR. RATE CALC 104.0 mL/min (>90); GLUCOSE,RANDOM 116.0 mg/dL (70-105); SODIUM SERUM 141.0 mmol/L (136-145); TOTAL PROTEIN, SERUM 5.7 g/dL (6.0-8.3); UREA NITROGEN, BLOOD 11.0 mg/dL (7-18)
--- NOTE | 2025-01-22 15:39 | PN ---
[facility] PROGRESS NOTE Date of Service: Jan 22, 2025 Time of Service: 15:21 SUBJECTIVE: This is an 84-year-old female, a resident of [facility] ED with past medical history of Hypothyroidism, pulmonary TB, intellectual disability, hypertension, Coronary artery disease with history of cardiomyopathy chronic dysphagia with PEG tube placement who was brought by EMS to the ED for complaints of low saturation and tachypnea.Apparently patient has been having foaming secretions in the mouth and saturations were on 70 to 80's.Patient is non historian and no family was present during my evaluation.Details and information were mostly gathered from ER MD and primary nurse.As per Er report patient was recently discharged at [facility] and was treated with pneumonia. Latest vital signs temperature 99.9, heart rate 78, blood pressure 120/40 saturation 97% on 2 L nasal cannula. Labs: WBC 10, hemoglobin 8, hematocrit 28, platelet count 169. Sodium 153, potassium 3.6 chloride 118 BUN 23, creatinine 0.3, GFR 104, AST 46, albumin 2.8. Chest x-ray result revealed suboptimal evaluation due to scoliosis and the patient's positioning, the craniofacial bone of the right overlie the right upper thorax . Questionable small pleural effusions and basilar atelectasis bilaterally, more pronounced on the right. Mild Chronic obstructive pulmonary disease. Questionable mild cardiomegaly. Mild elevated left hemidiaphragm. While in the ER patient received vancomycin and cefepime IV. We will admit patient for further medical management. 01/21/2025 - patient seen at bedside in room 202, patient is very frail, nonverbal. Patient is currently hemodynamically stable pulse 86, respiratory rate 18, blood pressure 121/61 , saturating at 99% on 3 L. patient has low-grade fever of 100 . Nutrition consult was placed. Patient is very anemic and has severe iron- deficiency. Patient has hypernatremia, continuing D5 water and free water flushes . Replacing phosphorus for the patient. Patient will be monitored closely . Patient's D-dimer is elevated, CT PE and DVT turned out to be negative. 01/22/2025 -patient seen at bedside in room 202 . Patient is resting comforta celeste , is on 3 L nasal cannula. Sodium improved to 141 from 154 , we held on the D5 water and Nephrology recommended free water flushes twice . Patient is currently hemodynamically stable with pulse 80, respiratory rate 20, blood pressure 124/68, saturating at 95% on 3 L . Spoke with the [facility] ED person accompanying the patient in the room . Informed of the plan that we are treating the patient symptomatically and we plan to transfer the patient to LTAC . Pending case management evaluation. We will monitor the patient closely . REVIEW OF SYSTEMS unable to perform patient has impaired cognitive PHYSICAL EXAM GENERAL APPEARANCE: The patient is somnolent, in no acute cardiopulmonary di stress. NEUROLOGICAL: Patient is nonverbal HEENT: Face is symmetric. Pupils are equal and reactive. Extraocular movements are intact. NECK: Supple. No JVD. CHEST: Normal chest expansion. Telemetry. LUNGS: Absence of any rales, rhonchi or any wheezing. CARDIOVASCULAR: Regular. S1 and S2 normal. No appreciable rubs, murmurs or gallops. ABDOMEN: Positive PEG tube clamped Soft, nontender, and nondistended. There is no rebound, voluntary guarding, or rigidity. : Deferred. No Hunt. EXTREMITIES: Non-edematous and not cyanotic. No clubbing. Good capillary refill. SKIN: No skin breakdown. Vital Signs (last 8hr) Date Time Temp Pulse Resp B/P (MAP) Pulse Ox O2 Delivery O2 Flow Rate FiO2 01/22/25 15:00 80 20 01/22/25 15:00 80 20 N/Cannula Low lpm 3.0 32 01/22/25 12:00 98.6 81 20 124/68 95 Nasal Cannula 3.0 01/22/25 10:57 76 20 N/Cannula Low lpm 3.0 32 01/22/25 10:57 76 20 01/22/25 08:00 95 Nasal Cannula* 3 32 01/22/25 08:00 99.1 84 20 118/61 95 Room Air 3.0 01/22/25 07:40 75 18 01/22/25 07:39 75 18 N/Cannula Low lpm 3.0 32 LABS: Laboratory: Test 01/22/25 05:25 01/22/25 03:36 01/21/25 09:25 01/21/25 03:53 Range/Units Whole Blood Glucose 107 70-110 MG/DL White Blood Count 8.7 4.8-10.8 K/uL Red Blood Count 2.48 L 4.00-5.50 MIL/uL Hemoglobin 7.8 L 12.0-16.0 g/dL Hematocrit 26.0 L 36-48 % Mean Corpuscular Volume 104.8 H 79-99 fL Mean Corpuscular Hemoglobin 31.5 27.0-33.0 pg Mean Corpuscular Hemoglobin Concent 30.0 L 32.0-36.0 g/dL Red Cell Distribution Width 14.7 11.0-15.5 % Platelet Count 132 130-400 K/uL Mean Platelet Volume 12.3 H 7.5-10.5 fL Immature Granulocyte % (Auto) 0.5 0-1 % Neutrophils (%) (Auto) 67.8 40.0-77.0 % Lymphocytes (%) (Auto) 14.0 L 21.0-51.0 % Monocytes (%) (Auto) 10.3 3.0-13.0 % Eosinophils (%) (Auto) 7.1 0.0-8.0 % Basophils (%) (Auto) 0.3 0.0-5.0 % Neutrophils # (Auto) 5.9 1.8-7.7 K/uL Lymphocytes # (Auto) 1.2 1.0-4.8 K/uL Monocytes # (Auto) 0.9 0.1-1.0 K/uL Eosinophils # (Auto) 0.62 0.00-0.70 K/uL Basophils # (Auto) 0.03 0.00-0.20 K/uL Absolute Immature Granulocyte (auto 0.04 0-1 K/uL Nucleated Red Blood Cells 0.0 0.0-0.19 % Sodium Level 141 136-145 mmol/L Potassium Level 4.0 3.5-5.1 mmol/L Chloride Level 109 101-111 mmol/L Carbon Dioxide Level 26 21-32 mmol/L Blood Urea Nitrogen 11 7-18 mg/dL Creatinine 0.3 L 0.5-1.0 mg/dL Glomerular Filtration Rate Calc 104 >90 mL/min Random Glucose 116 H 70-105 mg/dL Total Calcium 7.9 L 8.5-10.1 mg/dL Total Bilirubin 0.2 # 0.2-1.0 mg/dL Aspartate Amino Transf (AST/SGOT) 23 10-37 U/L Alanine Aminotransferase (ALT/SGPT) 25 12-78 U/L Alkaline Phosphatase 46 L 50-136 U/L Total Protein 5.7 L 6.0-8.3 g/dL Albumin 2.4 L 3.5-5.0 g/dL Urine Color LIGHT-YELLOW YELLOW Urine Appearance CLEAR CLEAR Urine pH 6.0 5.0-8.0 Urine Specific Wood 1.017 1.001-1.031 Urine Protein NEGATIVE NEGATIVE mg/dL Urine Glucose (UA) NEGATIVE NEGATIVE mg/dL Urine Ketones NEGATIVE NEGATIVE mg/dL Urine Occult Blood NEGATIVE NEGATIVE Urine Nitrate 1+ H NEGATIVE Urine Bilirubin NEGATIVE NEGATIVE mg/dL Urine Urobilinogen 0.2 0.2-1.0 mg/dL Urine Leukocyte Esterase NEGATIVE NEGATIVE Darren/uL Urine RBC 0-1 0-1 /HPF Urine WBC 0-1 0-1 /HPF Urine Bacteria RARE None Seen /HPF Urine Random Creatinine 18.49 L 30-135 mg/dL Urine Random Sodium 36 L 40-220 mmol/l Urine Random Potassium 34 25-125 mmol/L Urine Random Chloride 66 L 110-250 mmol/L Lactic Acid Level 1.4 0.8-2.5 mmol/L Phosphorus Level 1.8 L 2.5-4.9 mg/dL Magnesium Level 2.20 1.80-2.40 mg/dL Iron Level 13 L 50-170 mcg/dL Total Iron Binding Capacity 279 250-450 mcg/dL Percent Iron Saturation 4.6 L 22-44 % Ferritin 28 15-150 ng/mL Folic Acid (LAB) > 20.00 H 2-20 ng/mL Thyroid Stimulating Hormone (TSH) 3.18 # 0.36-3.74 uIU/mL Test 01/21/25 01:32 Range/Units Blood Gas Specimen Type Arterial Arterial Blood pH 7.431 7.350-7.450 Arterial Blood Partial Pressure CO2 40 32-45 mmHg Arterial Blood Partial Pressure O2 55.7 L 83.0-108.0 mmHg Arterial Blood HCO3 26.3 21.0-28.0 mmol/L Arterial Blood Oxygen Saturation 89.8 L 94.0-98.0 % Arterial Blood Base Excess 1.8 -2.0-3.0 mmol/L Hemoglobin (Blood Gas) 9.3 L 12.0-16.0 g/dL Sodium (Blood Gas) 151 H 136-145 MMOL/L Bedside Potassium (Blood Gas) 3.7 3.4-4.5 MMOL/L Bedside Chloride (Blood Gas) 118 H 98-107 MMOL/L Bedside Glucose (Blood Gas) 122 H 65-95 MG/DL Bedside Ionized Calcium (Blood Gas) 1.25 1.15-1.33 MMOL/L Bedside Lactic Acid (Blood Gas) 1.13 H 0.36-0.75 MMOL/L Blood Gas Temperature 34.0 L 35.5-37.0 CELSIUS Blood Gas Flow-by 3.00 0.00-15.00 L/min Blood Gas Vent Mode NC ROOM AIR FiO2 32.0 % Blood Gas Specimen Comment MAX RN ,RR Current Medications Medications (Trade) Dose Ordered Sig/Paulo Route PRN Reason Start Time Stop Time Status Last Admin Dose Admin Acetaminophen (TYLenol 325MG TAB) 650 mg Q4H PRN PO MILD PAIN (1-3) 01/20/25 05:00 02/19/25 04:59 01/21/25 00:28 650 MG Acetaminophen (TYLenol 325MG TAB) 650 mg Q6H PRN PO TEMPERATURE GREATER THAN 101.5 01/20/25 05:00 02/19/25 04:59 01/22/25 01:28 650 MG Albuterol (DUOneb) 1 udvial [id number] IH 01/20/25 06:00 02/19/25 05:59 01/22/25 14:59 1 UDVIAL Cefepime HCl (MAXipime 1 GM vial) 1 gm Q12H IVPB 01/20/25 05:00 01/30/25 04:59 01/22/25 04:46 1 GM Dextrose 1,000 ml @ 100 mls/hr Q10H IV 01/21/25 06:30 01/22/25 14:39 DC 01/22/25 04:54 100 MLS/HR Dextrose/Sodium Chloride 500 ml @ 75 mls/hr Q6H40M IV 01/20/25 05:00 01/20/25 09:48 DC Dextrose/Sodium Chloride 500 ml @ 75 mls/hr Q6H40M IV 01/20/25 10:00 01/20/25 09:49 DC Famotidine (Pepcid 20mg Vial) 20 mg BID IV 01/20/25 09:00 02/19/25 08:59 01/22/25 12:23 20 MG Folic Acid (FolVITE 5 MG/ML VIAL) 1 mg DAILY IV 01/21/25 09:00 02/20/25 08:59 01/22/25 12:23 1 MG Iron Sucrose (VenoFER) 300 mg Q24H IVP 01/21/25 14:00 01/23/25 14:01 UNV Iron Sucrose 300 mg/Sodium Chloride 250 ml @ 83 mls/hr Q24H IV 01/21/25 14:30 01/23/25 17:31 01/21/25 15:16 83 MLS/HR Leptospermum Honey (Medihoney) APPLY DIRECTED DAILY18 TP 01/21/25 18:00 02/20/25 17:59 01/21/25 18:40 1 APPL Magnesium Sulfate 50 ml @ 0 mls/hr PROTOCOL PRN IV hypomagensium 01/20/25 09:30 02/19/25 09:29 Metronidazole/ Sodium Chloride 100 ml @ 100 mls/hr Q8H6 IVPB 01/20/25 14:00 01/30/25 13:59 01/22/25 14:19 100 MLS/HR Ondansetron HCl (zoFRAN 4MG INJ) 4 mg Q6H PRN IV NAUSEA/VOMITING 01/20/25 05:00 02/19/25 04:59 Potassium Chloride/Dextrose/ Sod Cl 1,000 ml @ 45 mls/hr [id number] IV 01/20/25 10:00 01/22/25 14:39 DC 01/21/25 12:03 45 MLS/HR Potassium Phosphate 250 ml @ 42 mls/hr PROTOCOL PRN IV PROTOCOL 01/21/25 09:30 02/20/25 09:29 Potassium Chloride 100 ml @ 50 mls/hr AD PRN IV POTASSIUM PROTOCOL 01/20/25 09:30 02/19/25 09:29 Potassium Chloride (K-Dur/Klor-Con 20meq) 20 meq AD PRN PO POTASSIUM PROTOCOL 01/20/25 09:30 02/19/25 09:29 Potassium Chloride (KCl 10% Elixir 20meq/15ml) 20 meq AD PRN PO POTASSIUM PROTOCOL 01/20/25 09:30 02/19/25 09:29 01/21/25 07:42 20 MEQ Thiamine HCl (Vitamin B-1) 100 mg DAILY IVP 01/21/25 09:00 01/20/25 14:56 DC Thiamine HCl (Vitamin B-1) 100 mg DAILY IVP 01/21/25 09:00 01/23/25 09:01 01/22/25 12:23 100 MG Vancomycin HCl (Vancomycin 750mg) 750 mg Q24H IVPB 01/21/25 02:00 01/31/25 01:59 01/22/25 01:27 750 MG Vancomycin HCl (Vancomycin Protocol) 1 each AD IV 01/20/25 05:30 02/03/25 05:29 Wound Care/ Dressing Products (Venelex Ointment) BID TP 01/20/25 21:00 02/19/25 20:59 01/22/25 12:24 1 GM Wound Care/ Dressing Products (Venelex Ointment) APPLY DIRETCED BID TP 01/21/25 21:00 01/22/25 08:19 DC 01/21/25 21:06 1 GM DIAGNOSTICS / RADIOLOGY: [ ] ASSESSMENT: Acute hypoxemic respiratory failure POA Suspected aspiration pneumonia POA Acute anemia POA Hypernatremia POA Hyperchloremia POA Protein calorie malnutrition POA Debility POA Intellectual disability POA Chronic dysphagia on pegtube placement status POA Severe iron-deficiency POA Hypophosphatemia POA Dehydration POA PLAN: We will admit patient in medical telemetry Acute hypoxemic respiratory failure ,Suspected aspiration pneumonia May continue oxygen supplementation to keep saturation above 92% We will start on DuoNeb treatment as needed for shortness of breaths Follow up with the sputum culture We will follow up pulmonology recommendations Continue on cefepime, vancomycin, Flagyl Protein calorie malnutrition , Chronic Dysphagia on PEG tube Nutrition consult has been ordered We will follow their recommendations We will keep patient nothing by mouth Hypernatremia, electrolyte abnormalities We will start D51/4NS @ 75 ml / hr x 1bag and re evaluate Continue free water flushes We will follow Nephrology recommendations We will replace electrolytes as needed per protocol Anemia, Severe iron-deficiency IV Venofer has been ordered We will follow Nephrology recommendation Maintain the hemoglobin above 7 and transfuse if needed We will request case management service We will seek physical therapy service CT chest PE negative for pulmonary embolism lower extremity Doppler negative for DVT We will add prn medication for fever,pain,cough and nausea We will request labs in am Further orders to follow depending on above results Monitor patient closely Case Management eval for LTAC ATTESTATION BY PHYSICIAN I have seen and examined the patient. I reviewed the documentation, medical decision making, and treatment plan as noted by the resident provider above. I agree with the findings and plan of care. Jefry Quach MD, KEERTI K MD Jan 22, 2025 15:39
--- NOTE | 2025-01-22 17:10 | NUR ---
Nutrition f/u Reviewed labs, notes, and medications. Vit. D WNL, elevated b12, Ca 7.9(L), BG WNL, b-complex, IV abx, IV fluid per chart review. Pt on Jevity 1.5 @ 35 ml/hr + 250 Q4H, pending LTACH, PEG tube in place, wt via bed scale, coccyx ulcer, no edema, 2620 ml balance 01/21/25 per nursing. Monitor TF tolerance, monitor electrolytes. Pt high risk of refeeding syndrome. Start TF rate @ 25 ml/hr for the first 24 hours, increase 5 ml Q2H until you reach goal rate. If residual >500 ml stop TF for 2 hours and then restart if residual continues to be >500 ml stop TF and notify MD Recommendations: -Provide Jevity 1.5 @ 50 ml/hr x 22 hrs + 200 Q4H, goal rate to be provided once electrolytes are WNL Provides: 1650 kcals, 70 gm pro, 2036 ml per day -If bolus provide: 5 cans of Jevity 1.5 (times: 0900,1400, 1900, 0000,0400) 30 ml before and after each feed -Monitor BM -If no BM >3 days consider stool softener -Monitor electrolytes -Replenish electrolytes per protocol -Monitor wts -Reweigh as able -Provide MVI QD -Recommend Pt to follow up with PCP -Monitor TF tolerance + need for TF adjustment -Monitor goals of care RD to follow + available for consult per protocol Addendum: 01/22/25 at [address] Amended: Links added.
--- NOTE | 2025-01-22 19:33 | PN ---
[facility] PROGRESS NOTE Date Patient Seen: Jan 22, 2025 Time of Visit: 14:27 Supervising Physician: DR. MANUEL MARSHALL PROBLEM LIST: Acute hypoxemic respiratory failure Bilateral pneumonia, HAP vs/and aspiration Elevated D-dimer, PE ruled out Hypernatremia Microcytic hypochromic anemia Protein calorie malnutrition Debility Intellectual disability Chronic dysphagia with PEG tube Octogenarian INTERVAL HISTORY: Patient assessed at bedside. Eyes closed, but responds to verbal and tactile st imuli. Smiled when I said her name. ABG today shows PO2 of 55.7. Currently on 02@3LPM via NC. Weak and hypoxic. call taker at bedside. CXR looks worse today. BLE venous doppler at negative. Prognosis is guarded. 12/23/2024 Patient is an 84 year old gentleman, not in distress, continues to be on antibiotic therapy has no fever, chills, nausea or vomiting DNR status currently on D5 IVF, plan is to repeat labs including CBC, CMP, CRP, Chest x ray , ammonia level. Plan: Continue with D5 Repeat CMP , CBC, ammonia level, CRP, chest x ray in am Continue on IV Cefepime, Vanco, and Flagyl Duonebs, CPT Venous doppler negative Increase water flushes to 250ml every 6 hours to help decrease hypernatremia CM for LTACH for continuation of care REVIEW OF SYSTEMS: Unable due to mental status PHYSICAL EXAM: GENERAL: Lethargic, on NC, NAD HEENT: EOMI, Sclera non icteric, moist mucosa NECK: Supple, no JVD, trachea midline LUNGS: Diminished breath sounds bilaterally. No wheezes HEART: Regular rate and rhythm. Normal S1 and S2, without murmurs ABD: Abdomen soft, nontender. Bowel sounds present EXT: No clubbing cyanosis or edema NEURO: Lethargic Vital Signs (last 8hr) Date Time Temp Pulse Resp B/P (MAP) Pulse Ox O2 Delivery O2 Flow Rate FiO2 01/22/25 19:12 77 18 01/22/25 16:00 97.9 85 20 105/58 99 Nasal Cannula 3.0 01/22/25 15:00 80 20 01/22/25 15:00 80 20 N/Cannula Low lpm 3.0 32 01/22/25 12:00 98.6 81 20 124/68 95 Nasal Cannula 3.0 LABS: Hematology Labs: Test 01/22/25 03:36 Range/Units White Blood Count 8.7 4.8-10.8 K/uL Red Blood Count 2.48 L 4.00-5.50 MIL/uL Hemoglobin 7.8 L 12.0-16.0 g/dL Hematocrit 26.0 L 36-48 % Mean Corpuscular Volume 104.8 H 79-99 fL Mean Corpuscular Hemoglobin 31.5 27.0-33.0 pg Mean Corpuscular Hemoglobin Concent 30.0 L 32.0-36.0 g/dL Red Cell Distribution Width 14.7 11.0-15.5 % Platelet Count 132 130-400 K/uL Mean Platelet Volume 12.3 H 7.5-10.5 fL Immature Granulocyte % (Auto) 0.5 0-1 % Neutrophils (%) (Auto) 67.8 40.0-77.0 % Lymphocytes (%) (Auto) 14.0 L 21.0-51.0 % Monocytes (%) (Auto) 10.3 3.0-13.0 % Eosinophils (%) (Auto) 7.1 0.0-8.0 % Basophils (%) (Auto) 0.3 0.0-5.0 % Neutrophils # (Auto) 5.9 1.8-7.7 K/uL Lymphocytes # (Auto) 1.2 1.0-4.8 K/uL Monocytes # (Auto) 0.9 0.1-1.0 K/uL Eosinophils # (Auto) 0.62 0.00-0.70 K/uL Basophils # (Auto) 0.03 0.00-0.20 K/uL Absolute Immature Granulocyte (auto 0.04 0-1 K/uL Nucleated Red Blood Cells 0.0 0.0-0.19 % Chemistry Labs: Test 01/22/25 05:25 01/22/25 03:36 01/21/25 03:53 Range/Units Whole Blood Glucose 107 70-110 MG/DL Sodium Level 141 136-145 mmol/L Potassium Level 4.0 3.5-5.1 mmol/L Chloride Level 109 101-111 mmol/L Carbon Dioxide Level 26 21-32 mmol/L Blood Urea Nitrogen 11 7-18 mg/dL Creatinine 0.3 L 0.5-1.0 mg/dL Glomerular Filtration Rate Calc 104 >90 mL/min Random Glucose 116 H 70-105 mg/dL Total Calcium 7.9 L 8.5-10.1 mg/dL Total Bilirubin 0.2 # 0.2-1.0 mg/dL Aspartate Amino Transf (AST/SGOT) 23 10-37 U/L Alanine Aminotransferase (ALT/SGPT) 25 12-78 U/L Alkaline Phosphatase 46 L 50-136 U/L Total Protein 5.7 L 6.0-8.3 g/dL Albumin 2.4 L 3.5-5.0 g/dL Lactic Acid Level 1.4 0.8-2.5 mmol/L Phosphorus Level 1.8 L 2.5-4.9 mg/dL Magnesium Level 2.20 1.80-2.40 mg/dL Iron Level 13 L 50-170 mcg/dL Total Iron Binding Capacity 279 250-450 mcg/dL Percent Iron Saturation 4.6 L 22-44 % Ferritin 28 15-150 ng/mL Folic Acid (LAB) > 20.00 H 2-20 ng/mL Thyroid Stimulating Hormone (TSH) 3.18 # 0.36-3.74 uIU/mL DIAGNOSTICS / RADIOLOGY RESULTS: [ ] Disposition: Per primary team ATTESTATION BY PHYSICIAN Documentation assistance provided by a scribe, information recorded by the scribe was done at my direction and has been reviewed and validated by me." MANUEL MARSHALL MD I personally scribed for MANUEL MARSHALL MD ([facility]) on 01/22/25 at 19:33. Electronically submitted by Silva Godinez ([id number]). MANUEL MARSHALL MD Jan 22, 2025 19:33
[2025-01-22] MEDS: BIMATOPROST OS SCH (21:00)
--- NOTE | 2025-01-22 21:29 | PN ---
NEPHROLOGY NOTE SUBJECTIVE: This patient has multiple problems including 84-year-old, the patient has mental status changes, underlying intellectual disabilities, hypothyroidism, history of pulmonary tuberculosis, hypertension. The patient has underlying hyponatremia, history of cardiomyopathy, previous PEG tube placement. The patient apparently is admitted with shortness of breath, thick secretions. The patient has difficultly to give any history. No other associated findings. No other aggravating or relieving factors. The patient is generally weak. The patient's sodium level was high. He has received free water flushes and no other associated findings. REVIEW OF SYSTEMS: Not possible from the patient and mental status changes are present. All the other systems are unchanged. PHYSICAL EXAMINATION: GENERAL: Elderly lady laying in bed. VITAL SIGNS: Blood pressure is 124/68. Pulse 81. Respiratory rate is 20. HEENT: Head is atraumatic. Pupils are reactive. Sclerae anicteric. Conjunctivae not pale. Oral mucosa is not dry. NECK: Supple. No masses or bruits. Thyroid is palpable. Neck has no bruits. CHEST: Diminished at both bases, prolonged expiration and percussion, note being resonant in all areas. CARDIAC: Regular rhythm. No rub. No S3, no S4. No parasternal heave. ABDOMEN: No guarding or tenderness. Bowel sounds are present. No free fluid. BACK: No tenderness or back deformities. LABORATORY DATA: We have reviewed the labs in detail. Labs have shown low hemoglobin of 7.8, hematocrit is 26, white cell count is 8.7. Imaging studies are personally reviewed. ABG shows pH of 7.431, PCO2 of 40. Old records have been reviewed and imaging studies personally reviewed. The patient is nonverbal. PROBLEMS: * Hyponatremia. * Anemia. * Mental status changes. * Intellectual disabilities in a patient who is a [facility] resident, came with acute hypoxic respiratory failure and suspected aspiration. The patient has PEG tube in place and other comorbidities as detailed. PLAN: * My suggestions at this time, the patient remains on oxygen inhalation. * D5 water could be stopped. * The patient will have PEG feeding continue, as needed flushes can be adjusted with the water depending on electrolyte. The patient will have followup anemia. IV Venofer has been given. Continued with other supportive measures. Intake, output, weight and overall condition will be monitored. Nonsteroidal drugs will be avoided. Doses of medicine to be adjusted. Condition remains guarded. We have reviewed the labs, x-rays and imaging studies personally. We have discussed with other team physicians in detail. We have also ordered the followup labs and continued followup. Old records and external records were reviewed also and discussed with other team members. Thank you for this patient. TID: [id number] RECEIPT: [id number]
[2025-01-23] VITALS (15 sets, daily range): BP systolic 108–133; BP diastolic 60–85; PULSE 66–88; RESP 17–18; TEMP 98.9–99.6; O2SAT 92–100
[2025-01-23 01:21] LABS: IMMATURE GRANULOCYTE ABSOLUTE 0.02 K/uL (0-1); NUCLEATED RED BLOOD CELLS 0.0 % (0.0-0.19); PLATELET COUNT (AUTO) 137 K/uL (130-400); RED BLOOD CELL COUNT(AUTO) 2.44 MIL/uL (4.00-5.50); RED CELL DISTRIBUTION WIDTH 14.4 % (11.0-15.5); WHITE BLOOD COUNT (AUTO) 7.4 K/uL (4.8-10.8)
[2025-01-23 01:35] LABS: ASPARTATE AMINOTRANSFERASE 20.0 U/L (10-37); CREATININE 0.3 mg/dL (0.5-1.0); GLOMERULAR FILTR. RATE CALC 104.0 mL/min (>90); GLUCOSE,RANDOM 98.0 mg/dL (70-105); SODIUM SERUM 138.0 mmol/L (136-145); TOTAL PROTEIN, SERUM 5.4 g/dL (6.0-8.3); UREA NITROGEN, BLOOD 9.0 mg/dL (7-18)
[2025-01-23 03:03] LABS: ABG BASE EXCESS 3.5 mmol/L (-2.0-3.0); ABG HCO3 28.1 mmol/L (21.0-28.0); ABG OXYGEN SATURATION 93.6 % (94.0-98.0); ABG PCO2 42 mmHg (32-45); ABG PH 7.440 (7.350-7.450); DEVICE COMMENT LR,RN REY; PO2, ARTERIAL BG 65.7 mmHg (83.0-108.0); TEMPERATURE, CELSIUS BG 37.0 CELSIUS (35.5-37.0); VENT MODE, BG NC,32 (ROOM AIR)
[2025-01-23] MEDS: CALCIUM CITRATE PO SCH (09:00)
[2025-01-23] MEDS: TIMOLOL MALEATE OS SCH (09:00)
[2025-01-23] MEDS: VITAMIN D3 PO SCH (09:00)
[2025-01-23] MEDS: LACTOBACILLUS RHAMNOSUS GG 1 EACH CAP.SPRINK PEG SCH (12:05)
[2025-01-23] MEDS: ASPIRIN 81MG CHEW TAB PO SCH (12:05)
[2025-01-23] MEDS: MULTIVITAMIN TABLET PEG SCH (12:06)
[2025-01-23] MEDS: ASCORBIC ACID 500 MG TAB PEG SCH (12:06)
[2025-01-23] MEDS: (Cholecalciferol (Vitamin D3) 50 MCG) PO SCH (12:07)
[2025-01-23] MEDS ORDERED: COMPOUND IV MISC 1 EACH IVSOLN MISC PRN (12:30)
[2025-01-23] MEDS ORDERED: VANCOMYCIN 750MG VIAL IVPB SCH (14:00)
[2025-01-23] MEDS: THIAMINE HCL 100 MG/ML 2ML VIAL IVP SCH (14:14)
--- NOTE | 2025-01-23 15:38 | DS ---
Discharge Summary Hospital Course Summary: This is an 84-year-old female, a resident of [facility] with past medical history of Hypothyroidism, pulmonary TB, intellectual disability, hypertension, Coronary artery disease with history of cardiomyopathy chronic dysphagia with PEG tube placement who was brought by EMS to the ED for compl aints of low saturation and tachypnea.Apparently patient has been having foaming secretions in the mouth and saturations were on 70 to 80's.Patient is non historian and no family was present during my evaluation.Details and information were mostly gathered from ER MD and primary nurse.As per Er report patient was recently [place] [facility] [place] with [place]. Latest vital signs temperature 99.9, heart rate 78, blood pressure 120/40 saturation 97% on 2 L nasal cannula. Labs: WBC 10, hemoglobin 8, hematocrit 28, platelet count 169. Sodium 153, potassium 3.6 chloride 118 BUN 23, creatinine 0.3, GFR 104, AST 46, albumin 2.8. Chest x-ray result revealed suboptimal evaluation due to scoliosis and the patient's positioning, the craniofacial bone of the right overlie the right upper thorax . Questionable small pleural effusions and basilar atelectasis bilaterally, more pronounced on the right. Mild Chronic obstructive pulmonary disease. Questionable mild cardiomegaly. Mild elevated left hemidi aphragm. While in the ER patient received vancomycin and cefepime IV. We will admit patient for further medical management. 01/21/2025 - patient seen at bedside in room 202, patient is very frail, nonverbal. Patient is currently hemodynamically stable pulse 86, respiratory rate 18, blood pressure 121/61 , saturating at 99% on 3 L. patient has low-grade fever of 100 . Nutrition consult was placed. Patient is very anemic and has severe iron- deficiency. Patient has hypernatremia, continuing D5 water and free water flushes . Replacing phosphorus for the patient. Patient will be monitored closely . Patient's D-dimer is elevated, CT PE and DVT turned out to be negative. 01/22/2025 -patient seen at bedside in room 202 . Patient is resting comfortably , is on 3 L nasal cannula. Sodium improved to 141 from 154 , we held on the D5 water and Nephrology recommended free water flushes twice . Patient is currently hemodynamically stable with pulse 80, respiratory rate 20, blood pressure 124/68, saturating at 95% on 3 L . Spoke with the [facility] person accompanying the patient in the room . Informed of the plan that we are treating the patient symptomatically and we plan to transfer the patient to LTAC . Pending case management evaluation. We will monitor the patient closely . 01/23/2025 - patient is seen in room 202. Patient is stable, is on 3 L nasal cannula. No acute interventions from our side. Patient will be transferred to [facility] for continuing care with antibiotics and oxygen supplementation and will be monitored there. Patient will be discharged to [facility] . Moderate Needs Teacher(s): Wound management, Nephrology, pulmonology Procedure(s): PATIENT: TANO POLANCO MR#: [id number] : 1940 SEX: F AGE: 84 LOCATION: [facility] ORDER STATUS: REG REPORT#: [id number] SERVICE REASON: SOB ORDERING PHYSICIAN: MICKY CAVANAUGH MD PROCEDURE: CXR1VW - CHEST 1VW EXAM: CR Chest, 2 views. CLINICAL HISTORY: Shortness of breath. COMPARISON: None provided. FINDINGS: Suboptimal evaluation due to scoliosis and the patient's positioning, the craniofacial bones overlie the right upper thorax. Questionable small pleural effusions and basilar atelectasis bilaterally, more pronounced on the right. Mild COPD. Questionable mild cardiomegaly. Mildly elevated left hemidiaphragm. No pneumothorax. Osteopenia. Degenerative osseous changes. Chronic fracture of the right proximal humerus. IMPRESSION: Suboptimal evaluation due to scoliosis and the patient's positioning, the craniofacial bones overlie the right upper thorax. Questionable small pleural effusions and basilar atelectasis bilaterally, more pronounced on the right. Mild COPD. Questionable mild cardiomegaly. Mildly elevated left hemidiaphragm. /[place] DICTATED BY: EAMON ALANIS Jr., MD DATE: 01/20/25337 ELECTRONICALLY SIGNED BY: EAMON ALANIS Jr., MD DATE: 01/20/25337 PATIENT: TANO POLANCO MR#: [id number] : 1940 SEX: F AGE: 84 LOCATION: 2AH ORDER 5 STATUS: ADM IN REPORT#: [id number] SERVICE 4 REASON: elevated d-dimer ORDERING PHYSICIAN: QIAN ARAUJO NP PROCEDURE: CHES PE - CT CHEST PE PROTOCOL WWO CONT EXAM: CTA Chest with and without Intravenous Contrast for PE evaluation CLINICAL HISTORY: elevated d-dimer TECHNIQUE: Axial CTA images of the chest with and without intravenous contrast using a pulmonary embolism protocol. Multiplanar reconstructed images were created and reviewed. CONTRAST: None. was administered without incident. COMPARISON: None provided. FINDINGS: PULMONARY ARTERIES: No evidence of central or segmental pulmonary embolism is seen. AORTA: There is no evidence for aneurysm or dissection of the thoracic aorta. LUNGS: Bibasilar atelectasis. No pulmonary infiltrates. PLEURAL SPACES: Trace bilateral pleural effusions. HEART: Heart size is within normal limits. No significant pericardial effusion. LYMPH NODES: No lymphadenopathy is evident. BONES: Moderate degenerative changes in the thoracic spine with marked kyphotic deformity. UPPER ABDOMEN: Images of the upper abdomen are unremarkable. IMPRESSION: No pulmonary embolus. No thoracic aortic aneurysm or dissection. Trace bilateral pleural effusions. Bibasilar atelectasis. No pulmonary infiltrates. Moderate degenerative changes in the thoracic spine with marked kyphotic deformity. /[place] DICTATED BY: ADILENE PAINTING MD DATE: 01/20/251648 ELECTRONICALLY SIGNED BY: ADILENE PAINTING MD DATE: 01/20/251648 PATIENT: TANO POLANCO MR#: [id number] : 1940 SEX: F AGE: 84 LOCATION: 2AH ORDER 5 STATUS: ADM IN [facility] REPORT#: [id number] SERVICE 4 REASON: elevated d-dimer ORDERING PHYSICIAN: QIAN ARAUJO NP PROCEDURE: VENOUS WOODY - US VENOUS DOPPLER BILATERAL EXAM: US for Deep Venous Thrombosis, bilateral Lower Extremity. CLINICAL HISTORY: Leg Pain and Swelling TECHNIQUE: Real-time ultrasound scan of the veins of the bilateral lower extremity with color Doppler flow, spectral waveform analysis and compression. COMPARISON: None provided. FINDINGS: DEEP VEINS: The common femoral, superficial femoral, and popliteal veins are echolucent and compressible. There is normal color Doppler flow throughout. Bilateral posterior tibial veins were not seen. SOFT TISSUES: No popliteal fossa cyst or other abnormalities. IMPRESSION: 1. No sonographic evidence of deep venous thrombosis in the visualized deep veins of both lower extremities. 2. Please note that the bilateral posterior tibial veins were not visualized. /[place] DICTATED BY: EAMON ALANIS Jr., MD DATE: 01/20/251945 ELECTRONICALLY SIGNED BY: EAMON ALANIS Jr., MD DATE: 01/20/251945 PATIENT: TANO POLANCO MR#: [id number] : 1940 SEX: F AGE: 84 LOCATION: 2AH ORDER 0108 STATUS: ADM IN REPORT#: [id number] SERVICE 0500 REASON: RESPIRATORY fAILURE ORDERING PHYSICIAN: JACKIE FERNANDEZ FARM IMPLEMENT MECHANIC PROCEDURE: CXR1VW - CHEST 1VW EXAM: CR Chest, 1 View. CLINICAL HISTORY: Respiratory failure COMPARISON: CR chest and CT chest dated 01/20/2025 FINDINGS: Suboptimal evaluation due to kyphosis and the patient's positioning, the craniofacial bones overlie the right upper thorax. Unchanged trace bilateral pleural effusions with bibasilar atelectasis. Subtle interval reduction in aeration of the right lung. No pneumothorax The cardiac size is stable. Pulmonary vessels are unremarkable. IMPRESSION: 1. Trace bilateral pleural effusions with bibasilar atelectasis, unchanged. 2. Subtle decreased right lung aeration. /[place] DICTATED BY: EAMON ALANIS Jr., MD DATE: 01/21/25829 ELECTRONICALLY SIGNED BY: EAMON ALANIS Jr., MD DATE: 01/21/25 0830 Assessment/Plan: ASSESSMENT: Acute hypoxemic respiratory failure POA Suspected aspiration pneumonia POA Acute anemia POA Hypernatremia POA Hyperchloremia POA Protein calorie malnutrition POA Debility POA Intellectual disability POA Chronic dysphagia on pegtube placement status POA Severe iron-deficiency anemia POA Hypophosphatemia POA Dehydration POA Risk of refeeding syndrome Discharge Instructions: Continue all antibiotics as prescribed Continue all inhalers and nebulizers as prescribed Continue pain medications and skin care appointments as prescribed Tube feeding formula as per PEG orders Nutrition f/u Reviewed labs, notes, and medications. Vit. D WNL, elevated b12, Ca 7.9(L), BG WNL, b-complex, IV abx, IV fluid per chart review. Pt on Jevity 1.5 @ 35 ml/hr + 250 Q4H, pending LTACH, PEG tube in place, wt via bed scale, coccyx ulcer, no edema, 2620 ml balance 01/21/25 per nursing. Monitor TF tolerance, monitor electrolytes. Pt high risk of refeeding syndrome. Start TF rate @ 25 ml/hr for the first 24 hours, increase 5 ml Q2H until you reach goal rate. If residual >500 ml stop TF for 2 hours and then restart if residual continues to be >500 ml stop TF and notify MD Recommendations: -Provide Jevity 1.5 @ 50 ml/hr x 22 hrs + 200 Q4H, goal rate to be provided once electrolytes are WNL Provides: 1650 kcals, 70 gm pro, 2036 ml per day -If bolus provide: 5 cans of Jevity 1.5 (times: 0900,1400, 1900, 0000,0400) 30 ml before and after each feed -Monitor BM -If no BM >3 days consider stool softener -Monitor electrolytes -Replenish electrolytes per protocol -Monitor wts -Reweigh as able -Provide MVI QD -Recommend Pt to follow up with PCP -Monitor TF tolerance + need for TF adjustment -Monitor goals of care RD to follow + available for consult per protocol Monitor the electrolytes regularly Continue free water flushes. Maintain oxygen saturation above 92% Follow up with the wound management in 1-2 weeks Follow up with pulmonology in 1-2 weeks Follow up with Nephrology in 1-2 weeks Home Medications: Reported Medications Bimatoprost/Pf (Bimatoprost 0.01% Eye Drops) 0.01 % Drops, 5 ML OS HS, DROP 01/20/25 Lactobacillus Acidophilus (Acidophilus Lactobacilli) 500 Million Cell Capsule, 1 CAP PEG DAILY for 30 Days, #60 CAP 0 Refills 01/20/25 Ascorbic Acid (Ascorbic Acid) 500 Mg Tablet, 500 MG PEG DAILY, TAB 01/20/25 Cholecalciferol (Vitamin D3) (Vitamin D3) 50 Mcg (2000 Unit) Capsule, 50 MCG PO AM, CAP 01/25/24 Valsartan (Valsartan) 80 Mg Tablet, 80 MG PO BID, TAB 01/25/24 Timolol Maleate (Timoptic Xe 0.25% Ophth Gel) 0.25 % Opems, 20 DROP OS AM, APPL 01/25/24 Polyethylene Glycol 3350 (Miralax) 17 Gram/Dose Powder, 119 GM PO AM, APPL 01/25/24 Multivitamin (Multi Vitamin Daily) 1 Each Tablet, 1 EACH PEG AM, TAB 01/25/24 Levothyroxine Sodium (Levothyroxine Sodium) 50 Mcg Tablet, 50 MCG PEG AM, TAB 01/25/24 Folic Acid (Folic Acid) 0.8 Mg Tablet, 0.8 MG PEG AM, TAB 01/25/24 Ferrous Sulfate (Feosol) 325 Mg (65 Mg Iron) Tablet, 325 MG PEG AM, TAB 01/25/24 [Docusate Sodium ] No Conflict Check, 100 TSP PO AM 01/25/24 Calcium Citrate/Vitamin D3 (Calcium Citrate - Vit D Caplet) 315MG-6.25 Tablet, 2 EACH PEG AM, TAB 01/25/24 Aspirin (Aspirin) 81 Mg Tab.chew, 81 MG PO AM, TAB.CHEW 01/25/24 Alendronate Sodium (Alendronate Sodium) 35 Mg Tablet, 35 MG PO QWEEK, TAB 01/25/24 [Tylenol] No Conflict Check, 650 MG PO EVERY 8 HOURS 01/25/24 Discontinued Reported Medications Naproxen (Naproxen) 500 Mg Tablet, 500 MG PO [id number], TAB 01/25/24 Time spent arranging discharge: 1-30 minutes ATTESTATION BY PHYSICIAN I have seen and examined the patient. I reviewed the documentation, medical decision making, and treatment plan as noted by the resident provider above. I agree with the findings and plan of care. Jefry Quach MD, KEERTI K MD Jan 23, 2025 15:38
--- NOTE | 2025-01-23 16:45 | PN ---
NEPHROLOGY PROGRESS NOTE Date/Time Patient Seen: Jan 23, 2025 Reason for Consultation: 16:45 SUBJECTIVE: This is an 84-year-old female, a resident of [facility] with past medical history of Hypothyroidism, pulmonary TB, intellectual disability, hypertension, Coronary artery disease with history of cardiomyopathy chronic dysphagia with PEG tube placement who was brought by EMS to the ED for com plaints of low saturation and tachypnea. Chest x-ray result revealed suboptimal evaluation due to scoliosis and the patient's positioning, the craniofacial bone of the right overlie the right upper thorax . Questionable small pleural effusions and basilar atelectasis bilaterally, more pronounced on the right. Mild Chronic obstructive pulmonary disease. Questionable mild cardiomegaly. Mild elevated left hemidiaphragm. While in the ER patient received vancomycin and cefepime IV. She was noted with hyponatremia Sodium is improving, Continues free water flushes Tolerating tube feedings well. Hemoglobin has remained stable, iron panel was noted She was seen in the medical floor REVIEW OF SYSTEMS: Unable to obtain due to patient's status Vital Signs (last 8hr) Date Time Temp Pulse Resp B/P (MAP) Pulse Ox O2 Delivery O2 Flow Rate FiO2 01/21/25 13:34 82 18 01/21/25 11:00 100.0 86 18 121/61 99 Nasal Cannula 3.0 01/21/25 10:09 82 18 01/21/25 07:00 97.7 78 18 137/71 96 Nasal Cannula 3.0 01/21/25 06:31 79 18 N/Cannula Low lpm 5.0 40 01/21/25 06:28 79 18 PHYSICAL EXAM: GENERAL: Pale. No acute distress. EYES: EOMI. Anicteric. HENT: Moist mucous membranes. No scleral icterus. No cervical lymphadenopathy. LUNGS: Clear to auscultation bilaterally. No accessory muscle use. CARDIOVASCULAR: Regular rate and rhythm. No murmur. No JVD. ABDOMEN: Soft, non-tender and non-distended. No palpable masses. EXTREMITIES: No edema. Non-tender. SKIN: No rashes or lesions. Warm. NEUROLOGIC: No focal neurological deficits. CN II-XII grossly intact, but not individually tested. PSYCHIATRIC: Cooperative. Appropriate mood and affect. Current Medications Medications (Trade) Dose Ordered Sig/Paulo Route Start Time Stop Time Status Last Admin Dose Admin Albuterol (DUOneb) 1 udvial [id number] IH 01/20/25 06:00 02/19/25 05:59 01/21/25 13:34 1 UDVIAL Cefepime HCl (MAXipime 1 GM vial) 1 gm Q12H IVPB 01/20/25 05:00 01/30/25 04:59 01/21/25 04:01 1 GM Dextrose 1,000 ml @ 100 mls/hr Q10H IV 01/21/25 06:30 02/20/25 06:29 01/21/25 06:44 100 MLS/HR Dextrose/Sodium Chloride 500 ml @ 75 mls/hr Q6H40M IV 01/20/25 05:00 01/20/25 09:48 DC Dextrose/Sodium Chloride 500 ml @ 75 mls/hr Q6H40M IV 01/20/25 10:00 01/20/25 09:49 DC Famotidine (Pepcid 20mg Vial) 20 mg BID IV 01/20/25 09:00 02/19/25 08:59 01/21/25 11:30 20 MG Folic Acid (FolVITE 5 MG/ML VIAL) 1 mg DAILY IV 01/21/25 09:00 02/20/25 08:59 01/21/25 11:31 1 MG Metronidazole/ Sodium Chloride 100 ml @ 100 mls/hr Q8H6 IVPB 01/20/25 14:00 01/30/25 13:59 01/21/25 05:07 100 MLS/HR Potassium Chloride/Dextrose/ Sod Cl 1,000 ml @ 45 mls/hr [id number] IV 01/20/25 10:00 02/19/25 09:59 01/21/25 12:03 45 MLS/HR Thiamine HCl (Vitamin B-1) 100 mg DAILY IVP 01/21/25 09:00 01/20/25 14:56 DC Thiamine HCl (Vitamin B-1) 100 mg DAILY IVP 01/21/25 09:00 01/23/25 09:01 01/21/25 11:30 100 MG Vancomycin HCl (Vancomycin 750mg) 750 mg Q24H IVPB 01/21/25 02:00 01/31/25 01:59 01/21/25 01:20 750 MG Vancomycin HCl (Vancomycin Protocol) 1 each AD IV 01/20/25 05:30 02/03/25 05:29 Wound Care/ Dressing Products (Venelex Ointment) BID TP 01/20/25 21:00 02/19/25 20:59 01/21/25 12:04 1 GM LABORATORY: [ ] Hematology Labs: Test 01/23/25 01:15 Range/Units White Blood Count 7.4 4.8-10.8 K/uL Red Blood Count 2.44 L 4.00-5.50 MIL/uL Hemoglobin 7.7 L 12.0-16.0 g/dL Hematocrit 25.1 L 36-48 % Mean Corpuscular Volume 102.9 H 79-99 fL Mean Corpuscular Hemoglobin 31.6 27.0-33.0 pg Mean Corpuscular Hemoglobin Concent 30.7 L 32.0-36.0 g/dL Red Cell Distribution Width 14.4 11.0-15.5 % Platelet Count 137 130-400 K/uL Mean Platelet Volume 12.4 H 7.5-10.5 fL Immature Granulocyte % (Auto) 0.3 0-1 % Neutrophils (%) (Auto) 65.2 40.0-77.0 % Lymphocytes (%) (Auto) 16.4 L 21.0-51.0 % Monocytes (%) (Auto) 10.5 3.0-13.0 % Eosinophils (%) (Auto) 7.2 0.0-8.0 % Basophils (%) (Auto) 0.4 0.0-5.0 % Neutrophils # (Auto) 4.8 1.8-7.7 K/uL Lymphocytes # (Auto) 1.2 1.0-4.8 K/uL Monocytes # (Auto) 0.8 0.1-1.0 K/uL Eosinophils # (Auto) 0.53 0.00-0.70 K/uL Basophils # (Auto) 0.03 0.00-0.20 K/uL Absolute Immature Granulocyte (auto 0.02 0-1 K/uL Nucleated Red Blood Cells 0.0 0.0-0.19 % Chemistry Labs: Test 01/23/25 01:15 01/22/25 05:25 Range/Units Sodium Level 138 136-145 mmol/L Potassium Level 3.5 3.5-5.1 mmol/L Chloride Level 106 101-111 mmol/L Carbon Dioxide Level 28 21-32 mmol/L Blood Urea Nitrogen 9 7-18 mg/dL Creatinine 0.3 L 0.5-1.0 mg/dL Glomerular Filtration Rate Calc 104 >90 mL/min Random Glucose 98 70-105 mg/dL Lactic Acid Level 1.4 0.8-2.5 mmol/L Total Calcium 8.1 L 8.5-10.1 mg/dL Phosphorus Level 2.1 L 2.5-4.9 mg/dL Magnesium Level 2.00 1.80-2.40 mg/dL Total Bilirubin 0.2 0.2-1.0 mg/dL Aspartate Amino Transf (AST/SGOT) 20 10-37 U/L Alanine Aminotransferase (ALT/SGPT) 24 12-78 U/L Alkaline Phosphatase 47 L 50-136 U/L Ammonia 30 11-32 umol/L C-Reactive Protein, Quantitative 23.30 H 0.5-3.0 mg/L Total Protein 5.4 L 6.0-8.3 g/dL Albumin 2.3 L 3.5-5.0 g/dL Whole Blood Glucose 107 70-110 MG/DL DIAGNOSTICS / RADIOLOGY: REASON: RESPIRATORY fAILURE ORDERING PHYSICIAN: JACKIE FERNANDEZ GRAPHIC PRE PRESS TRADES WORKER PROCEDURE: CXR1VW - CHEST 1VW EXAM: CR Chest, 1 View. CLINICAL HISTORY: Respiratory failure COMPARISON: CR chest and CT chest dated 01/20/2025 FINDINGS: Suboptimal evaluation due to kyphosis and the patient's positioning, the craniofacial bones overlie the right upper thorax. Unchanged trace bilateral pleural effusions with bibasilar atelectasis. Subtle interval reduction in aeration of the right lung. No pneumothorax The cardiac size is stable. Pulmonary vessels are unremarkable. IMPRESSION: 1. Trace bilateral pleural effusions with bibasilar atelectasis, unchanged. 2. Subtle decreased right lung aeration. /[place] DICTATED BY: EAMON ALANIS Jr., MD DATE: 01/21/25829 REASON: elevated d-dimer ORDERING PHYSICIAN: QIAN ARAUJO DIRECTOR OF CUSTOMER SERVICE PROCEDURE: VENOUS WOODY - US VENOUS DOPPLER BILATERAL EXAM: US for Deep Venous Thrombosis, bilateral Lower Extremity. CLINICAL HISTORY: Leg Pain and Swelling TECHNIQUE: Real-time ultrasound scan of the veins of the bilateral lower extremity with color Doppler flow, spectral waveform analysis and compression. COMPARISON: None provided. FINDINGS: DEEP VEINS: The common femoral, superficial femoral, and popliteal veins are echolucent and compressible. There is normal color Doppler flow throughout. Bilateral posterior tibial veins were not seen. SOFT TISSUES: No popliteal fossa cyst or other abnormalities. IMPRESSION: 1. No sonographic evidence of deep venous thrombosis in the visualized deep veins of both lower extremities. 2. Please note that the bilateral posterior tibial veins were not visualized. /[place] DICTATED BY: EAMON ALANIS Jr., MD DATE: 01/20/251945 REASON: elevated d-dimer ORDERING PHYSICIAN: QIAN ARAUJO NP PROCEDURE: CHES PE - CT CHEST PE PROTOCOL WWO CONT EXAM: CTA Chest with and without Intravenous Contrast for PE evaluation CLINICAL HISTORY: elevated d-dimer TECHNIQUE: Axial CTA images of the chest with and without intravenous contrast using a pulmonary embolism protocol. Multiplanar reconstructed images were created and reviewed. CONTRAST: None. was administered without incident. COMPARISON: None provided. FINDINGS: PULMONARY ARTERIES: No evidence of central or segmental pulmonary embolism is seen. AORTA: There is no evidence for aneurysm or dissection of the thoracic aorta. LUNGS: Bibasilar atelectasis. No pulmonary infiltrates. PLEURAL SPACES: Trace bilateral pleural effusions. HEART: Heart size is within normal limits. No significant pericardial effusion. LYMPH NODES: No lymphadenopathy is evident. BONES: Moderate degenerative changes in the thoracic spine with marked kyphotic deformity. UPPER ABDOMEN: Images of the upper abdomen are unremarkable. IMPRESSION: No pulmonary embolus. No thoracic aortic aneurysm or dissection. Trace bilateral pleural effusions. Bibasilar atelectasis. No pulmonary infiltrates. Moderate degenerative changes in the thoracic spine with marked kyphotic deformity. /[place] DICTATED BY: ADILENE PAINTING MD DATE: 01/20/25 1649 REASON: SOB ORDERING PHYSICIAN: MICKY CAVANAUGH MD PROCEDURE: CXR1VW - CHEST 1VW EXAM: CR Chest, 2 views. CLINICAL HISTORY: Shortness of breath. COMPARISON: None provided. FINDINGS: Suboptimal evaluation due to scoliosis and the patient's positioning, the craniofacial bones overlie the right upper thorax. Questionable small pleural effusions and basilar atelectasis bilaterally, more pronounced on the right. Mild COPD. Questionable mild cardiomegaly. Mildly elevated left hemidiaphragm. No pneumothorax. Osteopenia. Degenerative osseous changes. Chronic fracture of the right proximal humerus. IMPRESSION: Suboptimal evaluation due to scoliosis and the patient's positioning, the craniofacial bones overlie the right upper thorax. Questionable small pleural effusions and basilar atelectasis bilaterally, more pronounced on the right. Mild COPD. Questionable mild cardiomegaly. Mildly elevated left hemidiaphragm. /[place] DICTATED BY: EAMON ALANIS Jr., MD DATE: 01/20/25 0338 ASSESSMENT: Hypernatremia Hypokalemia Acute hypoxemic respiratory failure Suspected aspiration pneumonia Acute anemia Hyperchloremia Protein calorie malnutrition Debility Intellectual disability Chronic dysphagia on peg tube placement status PLAN: Labs, diagnostic, radiologic exams reviewed and interpreted by myself and supervising physician. We have reviewed external records in detail Require close monitoring of renal function and electrolytes Order CBC, CMP, and electrolytes in am Continue with antibiotics BiPAP as necessary, for respiratory distress Monitor blood pressure adjust medication doses as needed Avoid hypotensive episodes May use Dilaudid 0.5 mg IV every 6 hours as needed for severe pain Monitor blood sugars Strict intake, output, and daily weight should be monitored Please renally adjust medications Avoid nephrotoxic and nonsteroidal drugs Avoid contrast if possible Will continue to monitor renal function, anemia, electrolytes Treatment plan discussed with patient Questions were answered We have discussed with the other team physicians in detail about the care plan We will continue to monitor the patient closely ATTESTATION BY PHYSICIAN I have seen and examined the patient. I reviewed the documentation, medical decision making, and treatment plan as noted by the mid-level provider above. I agree with the findings and plan of care. TOBIAS MESSER MD, [facility] Jan 23, 2025 16:45
--- NOTE | 2025-01-23 18:00 | NUR ---
REPORT WAS CALLED INTO [facility] AND GIVEN TO JAIDEN PUENTES.
--- NOTE | 2025-01-23 18:12 | PN ---
[facility] PROGRESS NOTE Date Patient Seen: Jan 23, 2025 Time of Visit: 12:59 Supervising Physician: DR. MANUEL MARSHALL PROBLEM LIST: Acute hypoxemic respiratory failure Bilateral pneumonia, HAP vs/and aspiration Severe Kyphoscoliosis Elevated D-dimer, PE ruled out Hypernatremia Microcytic hypochromic anemia Protein calorie malnutrition Debility Intellectual disability Chronic dysphagia with PEG tube Octogenarian INTERVAL HISTORY: Patient assessed at bedside. Eyes closed, but responds to verbal and tactile stimuli. Smiled when I said her name. ABG today shows PO2 of 55.7. Currently on 02@3LPM via NC. Weak and hypoxic. grounds caretaker at bedside. CXR looks worse today. BLE venous doppler at negative. Prognosis is guarded. 01/22/2025 Patient is an 84 year old gentleman, not in distress, continues to be on antibiotic therapy has no fever, chills, nausea or vomiting DNR status currently on D5 IVF, plan is to repeat labs including CBC, CMP, CRP, Chest x ray , ammonia level. 01/23/2025 Patient with severe Kyphoscoliosis more awake, no fever, contracted, peg tube status tolerating peg tube feedings, no report of fevers, no wheezing noted. Plan: Continue with D5 Repeat CMP , CBC, ammonia level, CRP, chest x ray in am Continue on IV Cefepime, Vanco, and Flagyl Duonebs, CPT Venous doppler negative Increase water flushes to 250ml every 6 hours to help decrease hypernatremia CM for LTACH for continuation of care REVIEW OF SYSTEMS: Unable due to mental status PHYSICAL EXAM: GENERAL: Lethargic, on NC, NAD HEENT: EOMI, Sclera non icteric, moist mucosa NECK: Supple, no JVD, trachea midline LUNGS: Diminished breath sounds bilaterally. No wheezes HEART: Regular rate and rhythm. Normal S1 and S2, without murmurs ABD: Abdomen soft, nontender. Bowel sounds present EXT: No clubbing cyanosis or edema NEURO: weak BACK : severe Kyphoscoliosis Vital Signs (last 8hr) Date Time Temp Pulse Resp B/P (MAP) Pulse Ox O2 Delivery O2 Flow Rate FiO2 01/23/25 16:34 99.0 66 18 133/85 93 Nasal Cannula 3.0 01/23/25 14:54 72 18 01/23/25 11:26 99.1 77 18 117/64 98 Nasal Cannula 3.0 01/23/25 10:58 74 18 01/23/25 10:57 76 18 N/Cannula Low lpm 4.0 36 LABS: Hematology Labs: Test 01/23/25 01:15 Range/Units White Blood Count 7.4 4.8-10.8 K/uL Red Blood Count 2.44 L 4.00-5.50 MIL/uL Hemoglobin 7.7 L 12.0-16.0 g/dL Hematocrit 25.1 L 36-48 % Mean Corpuscular Volume 102.9 H 79-99 fL Mean Corpuscular Hemoglobin 31.6 27.0-33.0 pg Mean Corpuscular Hemoglobin Concent 30.7 L 32.0-36.0 g/dL Red Cell Distribution Width 14.4 11.0-15.5 % Platelet Count 137 130-400 K/uL Mean Platelet Volume 12.4 H 7.5-10.5 fL Immature Granulocyte % (Auto) 0.3 0-1 % Neutrophils (%) (Auto) 65.2 40.0-77.0 % Lymphocytes (%) (Auto) 16.4 L 21.0-51.0 % Monocytes (%) (Auto) 10.5 3.0-13.0 % Eosinophils (%) (Auto) 7.2 0.0-8.0 % Basophils (%) (Auto) 0.4 0.0-5.0 % Neutrophils # (Auto) 4.8 1.8-7.7 K/uL Lymphocytes # (Auto) 1.2 1.0-4.8 K/uL Monocytes # (Auto) 0.8 0.1-1.0 K/uL Eosinophils # (Auto) 0.53 0.00-0.70 K/uL Basophils # (Auto) 0.03 0.00-0.20 K/uL Absolute Immature Granulocyte (auto 0.02 0-1 K/uL Nucleated Red Blood Cells 0.0 0.0-0.19 % Chemistry Labs: Test 01/23/25 01:15 01/22/25 05:25 Range/Units Sodium Level 138 136-145 mmol/L Potassium Level 3.5 3.5-5.1 mmol/L Chloride Level 106 101-111 mmol/L Carbon Dioxide Level 28 21-32 mmol/L Blood Urea Nitrogen 9 7-18 mg/dL Creatinine 0.3 L 0.5-1.0 mg/dL Glomerular Filtration Rate Calc 104 >90 mL/min Random Glucose 98 70-105 mg/dL Lactic Acid Level 1.4 0.8-2.5 mmol/L Total Calcium 8.1 L 8.5-10.1 mg/dL Phosphorus Level 2.1 L 2.5-4.9 mg/dL Magnesium Level 2.00 1.80-2.40 mg/dL Total Bilirubin 0.2 0.2-1.0 mg/dL Aspartate Amino Transf (AST/SGOT) 20 10-37 U/L Alanine Aminotransferase (ALT/SGPT) 24 12-78 U/L Alkaline Phosphatase 47 L 50-136 U/L Ammonia 30 11-32 umol/L C-Reactive Protein, Quantitative 23.30 H 0.5-3.0 mg/L Total Protein 5.4 L 6.0-8.3 g/dL Albumin 2.3 L 3.5-5.0 g/dL Whole Blood Glucose 107 70-110 MG/DL DIAGNOSTICS / RADIOLOGY RESULTS: [ ] plan : continue with current medical management aspiration precautions tube feedings Disposition: Per primary team ATTESTATION BY PHYSICIAN Documentation assistance provided by a scribe, information recorded by the scribe was done at my direction and has been reviewed and validated by me." MANUEL MARSHALL MD I personally scribed for MANUEL MARSHALL MD ([facility]) on 01/23/25 at 18:12. Electronically submitted by Silva Godinez ([email or web address]). MANUEL MARSHALL MD Jan 23, 2025 18:12
--- NOTE | 2025-01-23 19:00 | NUR ---
EMS WAS NOTIFIED OF NEED FOR TRANSFER TO [facility]. THEY WILL SEND A UNIT JOSE
[2025-01-23] MEDS: Solu-medROL 40MG VIAL IVP SCH (19:29)
--- NOTE | 2025-01-23 21:40 | NUR ---
Discharge patient was discharged to [facility] via [facility], patient to transfer with discharge paperwork and [facility] tech at bedside. All pertinent paperwork handed over to EMS personnel, patient transferred on 3L NC in stable condition.
--- NOTE | 2025-01-24 10:14 | HMCIMG ---
EXAM: CR Chest,2 Views. CLINICAL HISTORY: To rule out pneumothorax. COMPARISON: Chest x-ray dated 01/21/2025 FINDINGS: LUNGS: Bibasilar atelectatic opacities with minimal bilateral pleural effusion PLEURAL SPACES: No pleural effusion or pneumothorax. MEDIASTINUM: The cardiomediastinal silhouette is within normal limits. BONES: Significant scoliotic deformity of the thoracic spine. IMPRESSION: Bibasilar atelectatic opacities with minimal bilateral pleural effusion- No significant interval change. No radiographic evidence of pneumothorax. /[place]
[2025-01-29] MEDS ORDERED: ALENDRONATE SODIUM 35 MG TAB PO SCH (06:30)
== END 2025-01-23 21:30 | DRG 177 ==
LOC: EDH 00:45 → EDHIP 04:53 → 2AH 08:54
PROVIDERS: ADMIT Internal Medicine; ATTEND Internal Medicine
DX: J69.0 Pneumonitis due to inhalation of food and vomit (principal); J96.01 Acute respiratory failure with hypoxia; E87.0 Hyperosmolality and hypernatremia; E46 Unspecified protein-calorie malnutrition; E87.1 Hypo-osmolality and hyponatremia; I42.9 Cardiomyopathy, unspecified; J98.11 Atelectasis; Z68.1 Body mass index [BMI] 19.9 or less, adult; J90 Pleural effusion, not elsewhere classified; D50.9 Iron deficiency anemia, unspecified; E03.9 Hypothyroidism, unspecified; E83.39 Other disorders of phosphorus metabolism; E86.0 Dehydration; E87.6 Hypokalemia; E87.8 Other disorders of electrolyte and fluid balance, not elsewhere classified; F79 Unspecified intellectual disabilities; Z20.822 Contact with and (suspected) exposure to COVID-19; M47.814 Spondylosis without myelopathy or radiculopathy, thoracic region; I10 Essential (primary) hypertension; I25.10 Atherosclerotic heart disease of native coronary artery without angina pectoris; J44.9 Chronic obstructive pulmonary disease, unspecified; M41.9 Scoliosis, unspecified; R13.10 Dysphagia, unspecified; Z66 Do not resuscitate; Z87.11 Personal history of peptic ulcer disease; Z93.1 Gastrostomy status; Z79.899 Other long term (current) drug therapy
CPT/HCPCS: 36415; 36600; 71045; 71270; 80051; 80053; 80202; 81001; 82140; 82306; 82435; 82570; 82607; 82728; 82746; 82803; 82947; 82948; 83540; 83550; 83605; 83735; 83935; 84100; 84132; 84145; 84295; 84443; 85018; 85025; 85027; 85378; 86140; 87086; 87420; 87635; 87804; 87880; 93970; 94640; 94664; 94667; 94668; 96365; 96366; 96368; 99285; G0378; J0692; J1756; J2919; J3360; J3411; J3480; J3490; J7050; J7070; Q9967; J3370